=== PATIENT | female | born 1970 | race Caucasian/White ===

== ENCOUNTER 2021-05-22 07:36 | Outpatient (REF) | payer OTHER, SELFPAY ==
[2021-05-22 08:02] LABS: MANUAL DIFF FLAG NO
[2021-05-22 08:31] LABS: Basophils Absolute Auto 0.1 X10*3/uL (0.0-0.2); Basophils Percent Auto 0.7 % (0-2); Eosinophils Absolute Auto 0.4 X10*3/uL (0.0-0.4); Eosinophils Percent Auto 6.4 % (0-4); Hematocrit 36.6 % (37.0-47.0); Hemoglobin 12.6 g/dl (12.0-16.0); Imm Gran Abs Auto 0.01 X10*3/uL (0.00-0.03); Imm Gran Pct Auto 0.1 % (0.0-0.4); Lymphocytes Absolute Auto 3.3 X10*3/uL (1.2-4.9); Lymphocytes Percent Auto 47.5 % (20-40); Mean Corpuscular HGB Conc 34.4 g/dl (31.0-35.0); Mean Corpuscular Hemoglobin 30.9 pg (27.0-33.0); Mean Corpuscular Volume 89.7 fL (80.0-98.0); Mean Platelet Volume 9.4 fL (9.4-12.3); Monocytes Absolute Auto 0.4 X10*3/uL (0.1-1.2); Monocytes Percent Auto 5.5 % (2-11); Neutrophils Absolute Auto 2.8 x10*3/uL (2.0-8.3); Neutrophils Percent Auto 39.8 % (45-73); Platelet Count 302 X10*3/uL (160-400); Red Blood Count 4.08 X10*6/uL (4.20-5.50); Red Cell Distribution Width 12.6 % (11.0-16.0); White Blood Count 6.9 X10*3/uL (4.8-10.8)
[2021-05-22 08:48] LABS: Estimated Average Glucose 105 mg/dL; Hemoglobin A1c % 5.3 %
[2021-05-22 09:01] LABS: Alanine Aminotransferase 16 U/L (0-31); Albumin Level 4.2 g/dL (3.5-5.0); Alkaline Phosphatase 40 U/L (39-117); Anion Gap 12 (12-20); Aspartate Amino Transferase 16 U/L (5-31); Bilirubin Total 0.4 mg/dL (0.0-1.0); Blood Urea Nitrogen 13 mg/dL (9-16); Calcium 9.7 mg/dL (8.4-10.2); Carbon Dioxide 26 mmol/L (22-29); Chloride 107 mmol/L (96-108); Cholesterol 213 mg/dL; Estimated Glomerular Filt Rate > 60; Glucose Random 104 mg/dL (60-115); HDL Cholesterol 56 mg/dL; Iron 104 mcg/dL (30-160); LDL Cholesterol Calculated 131 mg/dl; Percent Iron Saturation 26 % (15-50); Potassium 4.4 mmol/L (3.3-5.1); Sodium 141 mmol/L (135-145); Total Iron Binding Capacity 395 mcg/dL (228-428); Total Protein 7.2 g/dL (6.5-8.0); Triglycerides 134 mg/dL; Unsaturated Iron Binding 291 ug/dL
[2021-05-22 09:24] LABS: Ferritin 71 ng/mL (10-250); TSH reflex Free T4 2.09 uIU/mL (0.32-4.0); Vitamin D 25-OH Total 28.6 ng/mL (>30)
[2021-05-22 10:15] LABS: Folate 11.2 ng/mL (> or = 4.0); Vitamin B12 640 pg/mL (200-900)
[2021-05-23 14:20] LABS: Calcium (PTHI) 9.5 mg/dL (8.6-10.2); PTHI 49 pg/mL (14-64)
[2021-05-25 14:47] LABS: Zinc 79 mcg/dL (60-130)
[2021-05-26 01:17] LABS: Vitamin A 46 mcg/dL (38-98)
[2021-05-27 10:41] LABS: Vitamin B1 6 nmol/L (8-30)
== END 2021-05-22 07:37 | disposition home or self-care (01) ==
LOC: HO.LAB 07:36
PROVIDERS: PCP Internal Medicine; Visit Provider Internal Medicine
DX: B07.9 Viral wart, unspecified (principal)
CPT/HCPCS: 36415; 80053; 80061; 82306; 82607; 82728; 82746; 83036; 83540; 83970; 84425; 84443; 84590; 84630; 85025

== ENCOUNTER 2022-01-03 09:40 | Outpatient (REF) | payer OTHER, SELFPAY ==
--- NOTE | ~2022-01-03 | XR_ITS ---
EXAMINATION: XR CERVICAL SPINE CLINICAL INFORMATION: Left-sided neck pain and tension COMPARISON: None TECHNIQUE: 3 views of the cervical spine were obtained. FINDINGS: No fracture or destructive process. Dystrophic calcification and spondylitic change observed, along the anterior margin of the C-spine. Prevertebral soft tissues are normal. Lateral masses of C1 and odontoid intact. XR/XR cervical spine 2V IMPRESSION: Degenerative change noted. No fracture.
== END 2022-01-03 09:41 | disposition home or self-care (01) ==
LOC: HO.XRAY 09:40
PROVIDERS: PCP Internal Medicine; Visit Provider Internal Medicine
DX: M54.2 Cervicalgia (principal); J45.41 Moderate persistent asthma with (acute) exacerbation
CPT/HCPCS: 72040

== ENCOUNTER 2022-02-21 11:41 | Outpatient (REF) | payer OTHER, SELFPAY ==
--- NOTE | ~2022-02-21 | XR_ITS ---
EXAMINATION: XR CHEST CLINICAL INFORMATION: Chest pain COMPARISON: Previous chest x-ray September 2019 TECHNIQUE: 2 views of the chest were obtained. FINDINGS: No significant abnormality is noted involving the heart, lungs, mediastinum, bony thorax or soft tissues. Surgical clips under the left hemidiaphragm. XR/XR chest 2V IMPRESSION: Unremarkable examination.
[2022-02-21 13:12] LABS: Eos%MD 2.8 %; Hematocrit 38.1 % (37.0-47.0); Hemoglobin 13.5 g/dl (12.0-16.0); IG%MD 0.1 %; Lymph%MD 35.3 %; Mean Corpuscular HGB Conc 35.4 g/dl (31.0-35.0); Mean Corpuscular Hemoglobin 31.5 pg (27.0-33.0); Mean Corpuscular Volume 88.8 fL (80.0-98.0); Mean Platelet Volume 9.9 fL (9.4-12.3); Mono%MD 5.2 %; Neut%MD 55.6 %; Platelet Count 317 X10*3/uL (160-400); Red Blood Count 4.29 X10*6/uL (4.20-5.50); White Blood Count 7.9 X10*3/uL (4.8-10.8)
[2022-02-21 13:53] LABS: Eosinophils Absolute Manual 0.3 X10*3/uL (0.0-0.4); Eosinophils Percent Manual 4 % (0-4); Lymphocytes Absolute Manual 2.8 X10*3/uL (1.2-4.9); Lymphocytes Percent Manual 35 % (20-40); Monocytes Absolute Manual 0.2 X10*3/uL (0.1-1.2); Monocytes Percent Manual 2 % (2-11); Neutrophils Percent Manual 59 % (45-73)
[2022-02-21 13:54] LABS: Band Neutrophils Percent 0 % (3-5); Neutrophils Absolute Manual 4.7 X10*3/uL (2.0-8.3)
[2022-02-21 13:55] LABS: Platelet Estimate NORMAL (NORMAL); Platelet Morphology Comment NORMAL; RBC Morphology NORMAL
== END 2022-02-21 11:42 | disposition home or self-care (01) ==
LOC: HO.LAB 11:41
PROVIDERS: PCP Internal Medicine; Visit Provider Internal Medicine
DX: J45.909 Unspecified asthma, uncomplicated (principal); R07.9 Chest pain, unspecified; R05.9 Cough, unspecified
CPT/HCPCS: 36415; 71046; 85007; 85027

== ENCOUNTER 2022-03-29 09:09 | Outpatient (REF) | payer OTHER, SELFPAY ==
[2022-03-30 13:03] LABS: BV Int Neg Control Negative (Negative); BV Int Pos Control Positive (Positive)
[2022-04-04 08:39] LABS: HPV 16 RNA NOT DETECTED (NOT DETECTED); HPV mRNA E6/E7 rflx Detected (Not Detected)
== END 2022-03-29 09:10 | disposition home or self-care (01) ==
LOC: HO.LNP 09:09
PROVIDERS: Visit Provider Advanced Practice Midwife
DX: Z01.419 Encounter for gynecological examination (general) (routine) without abnormal findings (principal); Z11.51 Encounter for screening for human papillomavirus (HPV); N89.8 Other specified noninflammatory disorders of vagina
CPT/HCPCS: 87480; 87510; 87624; 87625; 87660; 88142

== ENCOUNTER 2022-04-02 11:13 | Outpatient (REF) | payer OTHER, SELFPAY ==
--- NOTE | ~2022-04-02 | US_ITS ---
EXAMINATION: US THYROID CLINICAL INFORMATION: Nontoxic goiter COMPARISON: None TECHNIQUE: Linear transducer grayscale and color Doppler examination with attention to the region of the thyroid. FINDINGS: SIZE: Measurements of the thyroid lobes and nodules are given in sagittal, anteroposterior and transverse dimensions respectively. Right Thyroid Lobe: 4.0 x 1.1 x 1.6 cm, volume 3.7 mL. Parenchyma: The gland echotexture is homogeneous. Thyroid vascularity is normal. Left Thyroid Lobe: 4.9 x 1.0 x 1.3 cm, volume 3.3 mL. Parenchyma: The gland echotexture is homogeneous. Thyroid vascularity is normal. Isthmus: 0.3 cm in maximum AP dimension. Note nodules. NODES: No lymphadenopathy is seen in the tissue surrounding the thyroid gland. US/US thyroid IMPRESSION: Normal thyroid ultrasound.
== END 2022-04-02 11:14 | disposition home or self-care (01) ==
LOC: HO.US 11:13
PROVIDERS: Visit Provider Internal Medicine
DX: E04.9 Nontoxic goiter, unspecified (principal)
CPT/HCPCS: 76536

== ENCOUNTER 2022-04-17 09:54 | Outpatient (REF) | payer OTHER, SELFPAY | END 2022-04-17 09:55 | disposition home or self-care (01) | LOC: HO.RESP 09:54 | PROVIDERS: PCP Internal Medicine; Visit Provider Internal Medicine | DX: J45.909 Unspecified asthma, uncomplicated (principal) | CPT/HCPCS: 94060; 94727; 94729 ==

== ENCOUNTER → 2022-05-08 15:23 | Outpatient (BNVA) | payer OTHER, SELFPAY | PROVIDERS: PCP Internal Medicine; Visit Provider Internal Medicine | DX: Z13.89 Encounter for screening for other disorder (principal) ==

== ENCOUNTER 2022-05-24 08:04 | Outpatient (REF) | payer OTHER, SELFPAY | END 2022-05-24 08:05 | disposition home or self-care (01) | LOC: HO.LNP 08:04 | PROVIDERS: PCP Internal Medicine; Visit Provider Obstetrics & Gynecology | DX: R87.610 Atypical squamous cells of undetermined significance on cytologic smear of cervix (ASC-US) (principal); R87.810 Cervical high risk human papillomavirus (HPV) DNA test positive; N95.0 Postmenopausal bleeding | CPT/HCPCS: 57454; 88305 ==

== ENCOUNTER 2022-06-08 13:41 | Outpatient (REF) | payer OTHER, SELFPAY ==
--- NOTE | ~2022-06-08 | US_ITS ---
EXAMINATION: US PELVIS CLINICAL INFORMATION: Postmenopausal bleeding. 51-year-old. COMPARISON: 03/12/2019 TECHNIQUE: Ultrasound of the pelvis is performed using both transabdominal and transvaginal transducers along with Doppler. Transvaginal imaging is performed due to inadequate visualization transabdominally. FINDINGS: Uterus: The uterus is anteverted and measures 6.6 x 3.3 x 4.1 cm. The double wall endometrial thickness is 0.4 mm, but mildly thickened towards the fundal aspect with suggestion of possible cystic changes.. The uterus is smooth in contour and has normal myometrial echogenicity. There is a intramural 1.7 cm fibroid. A second smaller subserosal 1.2 cm fibroid is noted. Adnexa: Both ovaries are visualized. There is normal color flow to the adnexa. There is no ovarian torsion. There is no pelvic ascites or fluid collection. Right ovary measures 2.4 x 1.6 x 1.0 cm. Left ovary measures 2.3 x 1.3 x 1.6 cm. US/US pelvic and transvaginal IMPRESSION: 1. The double wall endometrial thickness is 0.4 mm, but mildly thickened towards the fundal aspect with suggestion of possible cystic changes. Recommend gynecologic consult. 2. Uterine fibroids.
== END 2022-06-08 13:42 | disposition home or self-care (01) ==
LOC: HO.US 13:41
PROVIDERS: Visit Provider Advanced Practice Midwife
DX: N95.0 Postmenopausal bleeding (principal)
CPT/HCPCS: 76830; 76856

== ENCOUNTER → 2022-06-21 10:21 | Outpatient (BNVA) | payer OTHER, SELFPAY | PROVIDERS: PCP Internal Medicine; Visit Provider Obstetrics & Gynecology | DX: Z13.89 Encounter for screening for other disorder (principal) ==

== ENCOUNTER 2022-07-06 10:44 | Day surgery (SDC) | payer OTHER, SELFPAY ==
[2022-07-03 10:12] VITALS: BMI 31.4
--- NOTE | 2022-07-05 11:12 | HO.ANESPROP2 ---
Documented by User: Dian Mendoza NP 07/05/22 11:14 HPI - Anesthesia Eval Consult details Narrative: 51yo F for D&C Hysteroscopy poss poltpectomy poss myomectomy PMFSH Active Problems Active Problems: All Active Problems (Updated 06/21/22 @ 10:44 by Mike Goodwin MD) Uterine myoma (Acute) Postmenopausal bleeding (Acute) ASCUS with positive high risk HPV cervical (Acute) Asthma (Acute) Hot flashes (Acute) Atypical lobular hyperplasia (ALH) of breast (Acute) Thyroid enlargement (Acute) Chest pain (Acute) Asthma (Acute) Obesity (BMI 30-39.9) (Acute) Insomnia (Acute) History of reduction mammoplasty (Acute) GERD (gastroesophageal reflux disease) (Acute) Hypertriglyceridemia (Acute) Fatty liver (Acute) Status post laparoscopic sleeve gastrectomy (Acute) Annual physical exam (Acute) Viral wart on finger (Acute) Contact dermatitis (Acute) Hidradenitis suppurativa (Acute) Intercostal pain (Acute) Eczema (Acute) Sprain of cervical neck (Acute) Annual physical exam (Acute) Past Medical History Medical History Anemia Asthma Asthma Atypical hyperplasia of right breast Cellulitis of ear Chest pain Colon cancer screening Cough Fatty liver GERD (gastroesophageal reflux disease) Hypertriglyceridemia Intercostal muscle pain Menorrhagia Neck pain Otitis externa Overweight (BMI 25.0-29.9) Restless leg syndrome Uterine fibroid Vitamin D deficiency Wound abscess Family History Family History Maternal Aunt Heart attack Lung cancer Uterine cancer Maternal Grandmother Lung cancer Surgical History Surgical History History of appendectomy History of endometrial ablation History of reduction mammoplasty Status post laparoscopic sleeve gastrectomy Social History Social History Housing: House Alcohol intake: current Alcohol intake frequency: holidays/special occasions only Patient Tobacco Use Status: Never used Tobacco e-Cigarette/Vaping Use: Never Used Second Hand Smoke Exposure: No Use of substances other than those prescribed or required for medical reasons: Yes Substance Use Type Other:: 3x week Are you DNR?: No Advance Directives: No Advance Directives Information Provided: Yes service: No Current occupational status: employed Cognitive needs: No Hearing needs: No Vision needs: Yes (glasses) Meds Allergies Allergy/AdvReac Type Severity Reaction Status Date / Time beclomethasone [From QVAR] Allergy Severe ANAPHYLAXIS,CHEST Verified 06/21/22 10:29 TIGHTNESS cyclobenzaprine AdvReac Intermediate restless Verified 06/21/22 10:29 leg Home Medications Medication Instructions Recorded Confirmed Last Taken Type tamoxifen 10 mg tablet 10 mg PO DAILY 03/29/22 07/03/22 Unknown History Exam Exam Date and Time: July 05, 2022 1112 Height,Weight and Vital Signs: Height 5 ft 4 in Weight 83 kg Narrative Narrative: PFT 04/2022 FLOWS:? FEV1 87% of predicted at 2.39 L. ? FVC 84% of predicted at 2.85 L. ? FEV1 to FVC ratio of 0.84. ? Positive bronchodilator response. ?? LUNG VOLUMES:? Total lung capacity 88% of predicted at 4.39 L. ? Residual volume 92% of predicted at 1.64 L. ? Slow vital capacity 85% of predicted at 2.75 L. ? Expiratory reserve volume 27% of predicted at 0.28 L. ? Diffusion capacity is normal. ?? IMPRESSION:? No obstructive or restrictive ventilatory defect.? Positive bronchodilator response.? Decreased expiratory reserve volume suggests extrathoracic restriction likely secondary to abdominal obesity. Assessment and Plan Assessment Anesthesia Assessment: Chart Reviewed Documented by User: Viviana Bella MD 07/06/22 12:04 [facility] Past Medical History Medical History Anemia Asthma Asthma Atypical hyperplasia of right breast Cellulitis of ear Chest pain Colon cancer screening Cough Fatty liver GERD (gastroesophageal reflux disease) Hypertriglyceridemia Intercostal muscle pain Menorrhagia Neck pain Otitis externa Overweight (BMI 25.0-29.9) Restless leg syndrome Uterine fibroid Vitamin D deficiency Wound abscess Family History Family History Maternal Aunt Heart attack Lung cancer Uterine cancer Maternal Grandmother Lung cancer Family history of problems with anesthesia: No Surgical History Surgical History History of appendectomy History of endometrial ablation History of reduction mammoplasty Status post laparoscopic sleeve gastrectomy History of Problems with Anesthesia: No Social History Social History Housing: House Alcohol intake: current Alcohol intake frequency: holidays/special occasions only Patient Tobacco Use Status: Never used Tobacco e-Cigarette/Vaping Use: Never Used Second Hand Smoke Exposure: No Use of substances other than those prescribed or required for medical reasons: Yes Substance Use Type Other:: 3x week Are you DNR?: No Advance Directives: No Advance Directives Information Provided: Yes service: No Current occupational status: employed Cognitive needs: No Hearing needs: No Vision needs: Yes (glasses) Meds Allergies Allergy/AdvReac Type Severity Reaction Status Date / Time beclomethasone [From QVAR] Allergy Severe ANAPHYLAXIS,CHEST Verified 06/21/22 10:29 TIGHTNESS cyclobenzaprine AdvReac Intermediate restless Verified 06/21/22 10:29 leg Home Medications Medication Instructions Recorded Confirmed Last Taken Type tamoxifen 10 mg tablet 10 mg PO DAILY 03/29/22 07/03/22 Unknown History Exam Airway Mallampati Class: I TM Dist: >3cm Neck ROM: Full Heart: rr Lungs: cta Assessment and Plan Final Anesthetic Review Family History of Problems with Anesthesia: No History of Problems with Anesthesia: No NPO: Yes ASA Class: II Final Preanesthetic Review: No Changes in Pt Med Stat, Meds/Allgs Chart Reviewed, Consent Obtained/Reviewed and Anes Risks/Benef Reviewed Patient Risk: Low Procedure Risk: Low Anesthetic Plan Anesthetic Plan: GA Disposition: Standard PACU
[2022-07-06 11:03] VITALS: BP 116/74; PULSE 76; RESP 18; TEMP 36.3; O2SAT 97; BMI 31.2
[2022-07-06 11:06] VITALS: BMI 31.2
[2022-07-06 11:42] LABS: UPreg QC Valid YES; Urine Pregnancy NEGATIVE (NEGATIVE)
--- NOTE | 2022-07-06 12:03 | MHC.SHP ---
Pre-Procedural Eval Section A Date of Service: 07/06/22 The patient is an INPATIENT: No Changes since office visit: No Cold of Flu in the past 2 weeks, No New Medical Problems, No Changes in Medication and No Patient answered all questions The History & Physical has been completed within 30 days and I have reviewed it.: Yes Section B Chief Complaint: Postmenopausal bleeding Allergies: Allergies Allergy/AdvReac Type Severity Reaction Status Date / Time beclomethasone [From QVAR] Allergy Severe ANAPHYLAXIS,CHEST Verified 06/21/22 10:29 TIGHTNESS cyclobenzaprine AdvReac Intermediate restless Verified 06/21/22 10:29 leg Plan Diagnosis/Plan: Unchanged I have reviewed the history and physical and performed a pertinent physical examination on my patient. No changes have occurred unless specified. Time Spent With Patient Time: Total time managing care of this patient today ____ minutes.
--- NOTE | 2022-07-06 12:45 | P.BOP_ITS ---
Brief Operative Note Date of Service: 07/06/22 Pre-op diagnosis: Postmenopausal bleeding Post-op diagnosis: same (Normal endometrial cavity with no evidence pathology) Procedure: Hysteroscopy D&C Surgeon: Mike Goodwin MD Anesthesia: GLMA Was an Machine Tool Technician Instructor used for this Procedure?: No Estimated blood loss (mL): 0 Pathology: other (Endometrial Scrapping. ) Condition: stable Disposition: PACU
--- NOTE | 2022-07-06 12:45 | P.OP_ITS ---
Operative Note Operative Note Date of Service: 07/06/22 Narrative: Preop Diagnosis: Post Menopausal bleeding Operation: Diagnostic Hysteroscopy, Dilataion & Curettage Post Op Diagnosis: Normal endometrial cavity QBL: Minimal Anesthesia: GLMA Surgeon: Mike Goodwin MD Senior Executive Compensation Analyst: None Complication: None Pathology: Endometrial Scrapings Procedure: The patient was put in the dorsal lithotomy position, scrubbed, and draped in the usual manner. A sterile speculum was inserted in the patient's vagina. The anterior lip of the cervix was grasped with a single tooth tenaculum. The cervix was dilated up to 5 mm, then the scope was inserted in the patient's uterus. Inspection revealed Normal endometrial cavity. The Myosure Reach device was used; the scope was removed from the endometrial cavity , sharp curettings was carried on with minimal to moderate amount of tissues retrieved. At the end of the procedure, all instruments were taken out of the patient uterine and vaginal cavity. The single tooth tenaculum was removed and homeostasis was assured using pressure,. The patient tolerated the procedure well and was transferred to the PACU in a stable condition.
[2022-07-06 12:50] VITALS: BP 126/78; PULSE 91; RESP 16; TEMP 36.8; O2SAT 94
[2022-07-06 12:55] VITALS: BP 128/86; PULSE 85; RESP 16; O2SAT 96
[2022-07-06 13:00] VITALS: BP 128/76; PULSE 80; RESP 16; O2SAT 97
[2022-07-06] MEDS: oxyCODONE HCl Immed Release 5 MG TABLET PO (13:00)
[2022-07-06 13:05] VITALS: BP 125/77; PULSE 68; RESP 16; O2SAT 98
[2022-07-06] MEDS: Acetaminophen 325 MG TABLET 650 MG PO (13:07)
[2022-07-06] MEDS: Ketorolac Tromethamine 30 MG/ML VIAL 15 MG IVPUSH (13:09)
[2022-07-06 13:20] VITALS: BP 128/76; PULSE 76; RESP 18; TEMP 36.4; O2SAT 98
== END 2022-07-06 13:45 | disposition home or self-care (01) ==
PROVIDERS: PCP Internal Medicine; Visit Provider Obstetrics & Gynecology
PROC: 0UDB8ZZ Extraction of Endometrium, Via Natural or Artificial Opening Endoscopic (ICD-10-PCS; CPT 58558; principal; 2022-07-06 12:30)
DX: N95.0 Postmenopausal bleeding (principal); N60.91 Unspecified benign mammary dysplasia of right breast; D25.9 Leiomyoma of uterus, unspecified; R87.610 Atypical squamous cells of undetermined significance on cytologic smear of cervix (ASC-US); R87.810 Cervical high risk human papillomavirus (HPV) DNA test positive; D64.9 Anemia, unspecified; J45.909 Unspecified asthma, uncomplicated; K21.9 Gastro-esophageal reflux disease without esophagitis; E78.1 Pure hyperglyceridemia; E55.9 Vitamin D deficiency, unspecified; E66.3 Overweight; Z68.31 Body mass index [BMI] 31.0-31.9, adult; Z79.810 Long term (current) use of selective estrogen receptor modulators (SERMs); Z79.899 Other long term (current) drug therapy; Z98.890 Other specified postprocedural states; Z88.8 Allergy status to other drugs, medicaments and biological substances; Z98.84 Bariatric surgery status
CPT/HCPCS: 58558; 81025; 88305; J1885; J2250; J2405; J3010

== ENCOUNTER → 2022-07-17 11:56 | Outpatient (BNVA) | payer OTHER, SELFPAY | PROVIDERS: PCP Internal Medicine; Visit Provider Obstetrics & Gynecology | DX: Z13.89 Encounter for screening for other disorder (principal) ==

== ENCOUNTER 2023-02-21 04:52 | Emergency (ER) | payer OTHER, SELFPAY ==
--- NOTE | ~2023-02-21 | US_ITS ---
EXAMINATION: US ABDOMEN LIMITED CLINICAL INFORMATION: Right upper quadrant pain. COMPARISON: None available. TECHNIQUE: Real-time imaging of the right upper quadrant abdominal to assess the gallbladder and common bile duct. FINDINGS: Gallbladder appears dilated. Multiple mobile gallstones are identified at the gallbladder fundus. Gallbladder wall thickness is within normal limits. Sonographic Boswell sign is reportedly positive. Common bile duct measures 0.6 cm in diameter. US/US abdomen limited IMPRESSION: Cholelithiasis. Though the gallbladder wall is not thickened, there is a reportedly positive sonographic Boswell sign and therefore early cholecystitis cannot be excluded. If clinically warranted, nuclear medicine hepatobiliary scan could be performed to assess for cystic duct obstruction.
[2023-02-21 05:02] VITALS: BP 134/89; PULSE 94; RESP 20; TEMP 36.8; O2SAT 96; BMI 31.8
[2023-02-21 05:13] LABS: MANUAL DIFF FLAG NO
[2023-02-21 05:14] LABS: Basophils Absolute Auto 0.1 X10*3/uL (0.0-0.2); Basophils Percent Auto 0.9 % (0-2); Eosinophils Absolute Auto 0.3 X10*3/uL (0.0-0.4); Eosinophils Percent Auto 3.1 % (0-4); Hematocrit 37.6 % (37.0-47.0); Hemoglobin 12.8 g/dl (12.0-16.0); Imm Gran Abs Auto 0.02 X10*3/uL (0.00-0.03); Imm Gran Pct Auto 0.2 % (0.0-0.4); Lymphocytes Absolute Auto 2.8 X10*3/uL (1.2-4.9); Lymphocytes Percent Auto 33.3 % (20-40); Mean Corpuscular Volume 85.3 fL (80.0-98.0); Mean Platelet Volume 9.1 fL (9.4-12.3); Monocytes Absolute Auto 0.5 X10*3/uL (0.1-1.2); Monocytes Percent Auto 5.3 % (2-11); Neutrophils Absolute Auto 4.9 x10*3/uL (2.0-8.3); Neutrophils Percent Auto 57.2 % (45-73); Platelet Count 326 X10*3/uL (160-400); Red Blood Count 4.41 X10*6/uL (4.20-5.50); Red Cell Distribution Width 12.1 % (11.0-16.0); White Blood Count 8.5 X10*3/uL (4.8-10.8)
[2023-02-21 05:26] LABS: Alanine Aminotransferase 26 U/L (0-31); Albumin Level 4.4 g/dL (3.5-5.0); Alkaline Phosphatase 50 U/L (39-117); Anion Gap 16 (12-20); Aspartate Amino Transferase 28 U/L (5-31); Bilirubin Direct 0.1 mg/dL (0.0-0.5); Bilirubin Total 0.3 mg/dL (0.0-1.0); Blood Urea Nitrogen 14 mg/dL (9-16); Calcium 9.5 mg/dL (8.4-10.2); Carbon Dioxide 20 mmol/L (22-29); Chloride 108 mmol/L (96-108); Creatinine Clr Calc Pharmacy 81.1; Estimated Glomerular Filt Rate > 60; Glucose Random 138 mg/dL (60-115); Lipase 28 U/L (8-78); Potassium 4.1 mmol/L (3.3-5.1); Sodium 140 mmol/L (135-145); Total Protein 7.7 g/dL (6.5-8.0)
[2023-02-21] MEDS: Ketorolac Tromethamine 30 MG/ML VIAL 15 MG IVPUSH (05:27)
[2023-02-21] MEDS: 0.9 % Sodium Chloride 1,000 ML 999 ML IV (05:27)
--- NOTE | 2023-02-21 05:32 | PC.NURSE ---
Pt presents to the ED for evaluation of severe RUQ abdominal pain since 10 pm last night. Patient is also c/o N/V/D. 20 G IV line inserted in R AC, labs drawn per MD order. Patient medicated per JUN. Call mehta placed within patient's reach. Plan of care ongoing.
[2023-02-21 06:04] VITALS: RESP 16
[2023-02-21] MEDS: HYDROmorphone HCl 0.5 MG/0.5 ML SYRINGE 0.25 MG IVPUSH (06:04)
--- NOTE | 2023-02-21 06:07 | ED_ITS ---
HPI - Abdominal Pain General Chief Complaint: Abdominal Pain Stated Complaint: Abdominal/Back pain Time Seen by Provider: 02/21/23 05:21 Source: patient Mode of arrival: ambulatory History of Present Illness HPI narrative: 52-year-old female who presents with onset of right upper quadrant pain last night at approximately 22:00 and was associated with nausea, vomiting and a small amount of diarrhea but denies any dysuria or history of renal colic and denies any fevers or chills. Patient is currently in pain. Related Data Home Medications Medication Instructions Recorded Confirmed tamoxifen 10 mg tablet 10 mg PO DAILY 03/29/22 07/19/22 Previous Rx's Medication Instructions Recorded triamcinolone acetonide 0.5 % 1 appl topical BID #15 grams 05/02/21 topical cream albuterol sulfate 90 mcg/actuation 2 puff inhalation Q6H PRN 11/28/21 aerosol inhaler (ProAir HFA) bronchospasm 90 days #8.5 grams [id number] 3.5 4 drp otic (ears) Q8H 10 days #10 06/19/22 mg-10,000 unit/mL-1 % ear mL drops,susp omeprazole 20 mg capsule,delayed 20 mg PO DAILY 90 days #90 caps 01/21/23 release citalopram 20 mg tablet 20 mg PO DAILY #90 tabs 02/13/23 zolpidem 5 mg tablet (Ambien) 5 mg PO BEDTIME PRN sleep #14 tabs 02/13/23 Allergies Allergy/AdvReac Type Severity Reaction Status Date / Time beclomethasone [From QVAR] Allergy Severe ANAPHYLAXIS,CHEST Verified 06/21/22 10:29 TIGHTNESS cyclobenzaprine AdvReac Intermediate restless Verified 06/21/22 10:29 leg Review of Systems Review of Systems Pertinent positives and negatives as stated in HPI PMFSH Past Medical History Source: nursing notes reviewed Medical History Asthma Chest pain Asthma Neck pain Intercostal muscle pain Cough Otitis externa Colon cancer screening Overweight (BMI 25.0-29.9) Wound abscess Cellulitis of ear Menorrhagia Anemia Uterine fibroid Fatty liver Hypertriglyceridemia Vitamin D deficiency GERD (gastroesophageal reflux disease) Restless leg syndrome Atypical hyperplasia of right breast Surgical History History of endometrial ablation Status post laparoscopic sleeve gastrectomy History of appendectomy History of reduction mammoplasty Family History Family History Maternal Aunt Heart attack Lung cancer Uterine cancer Maternal Grandmother Lung cancer Social History Social History Housing: House Alcohol intake: current Alcohol intake frequency: holidays/special occasions only Alcohol type: wine Patient Tobacco Use Status: Never used Tobacco Smoked in Last 30 Days: No e-Cigarette/Vaping Use: Never Used Second Hand Smoke Exposure: No Use of substances other than those prescribed or required for medical reasons: Yes Substance Use Type: Marijuana Substance Use Frequency: Daily Advance Directives: No Advance Directives Information Provided: Yes Patient : No service: No Current occupational status: employed Cognitive needs: No Hearing needs: No Vision needs: Yes (glasses) Physical Exam ED Vital Signs: Vital Signs - 24 hr 02/21/23 05:02 02/21/23 06:04 02/21/23 06:12 Temperature 98.2 F 98.2 F Pulse Rate 94 79 Respiratory Rate 20 16 14 Blood Pressure 134/89 140/84 H Pulse Oximetry 96 100 Oxygen Delivery Method Room Air Room Air BMI result Body Mass Index 31.8 VITAL SIGNS: Reviewed. GENERAL: Well developed, well nourished, in no acute distress. HEAD: Normocephalic/atraumatic EYES: PERRLA, EOMI EARS: Ext canals without abnormality NOSE: Nares patent bilateral OROPHARYNX: no oral lesions noted, posterior pharynx clear NECK: Supple, no adenopathy LUNGS: Normal breath sounds. No adventitious sounds or accessory muscle use. SpO2<96> CARDIOVASCULAR: Regular rate and rhythm without noted murmurs ABDOMEN: Soft, tenderness to palpation in the right upper quadrant with positive Boswell's, non-distended with bowel sounds. MUSCULOSKELETAL: No tenderness, deformities, or effusions noted on gross inspection. EXTREMITIES: No cyanosis, clubbing or edema. SKIN: Inspection of the skin reveals no rashes NEUROLOGIC: Alert and oriented x 4. Strength and sensation to light touch were grossly intact x 4. Medical Decision Making Medical Decision Making MDM Narrative: 52-year-old female who presents with onset of right upper quadrant pain with associated nausea and vomiting, DDX: Acute cholecystitis, less likely felt to be renal colic or pyelonephritis and lower clinical suspicion for viral etiology. I reviewed all investigations and hematologic indices are negative for leukocytosis or left shift, there is no anemia or thrombocytopenia. Chemistry indices are grossly within normal limits without REJI and no evidence of electrolyte or liver enzyme abnormalities, lipase is within normal limits. Urinalysis shows trace leukocyte esterase without nitrite positivity and doubt UTI. Ultrasound shows a dilated gallbladder with gallstones but there is no noted gallbladder wall thickening and Boswell's is positive on the ultrasound exam. Recommendation from Radiology is for HIDA scan. Signed out to DR Costello - KELLY Scan - Dr Carter aware Differential Diagnosis Differential Diagnoses: The differential diagnosis associated with the presentation includes Please see the discussion above Admission/Observation Consideration of admission/observation: Escalation of care including admission/observation considered Please see the discussion above Lab Data MDM Lab Attestation statement: I reviewed the patient's lab results. Please see the discussion above 02/21/23 05:09 02/21/23 05:09 Labs: Lab Results 02/21/23 02/21/23 Range/Units 05:09 06:41 WBC 8.5 (4.8-10.8) X10*3/uL RBC 4.41 (4.20-5.50) X10*6/uL Hgb 12.8 (12.0-16.0) g/dl Hct 37.6 (37.0-47.0) % MCV 85.3 (80.0-98.0) fL MCH 29.0 (27.0-33.0) pg MCHC 34.0 (31.0-35.0) g/dl RDW 12.1 (11.0-16.0) % Plt Count 326 (160-400) X10*3/uL MPV 9.1 L (9.4-12.3) fL Immature Gran % (Auto) 0.2 (0.0-0.4) % Neut % (Auto) 57.2 (45-73) % Lymph % (Auto) 33.3 (20-40) % Reagan % (Auto) 5.3 (2-11) % Eos % (Auto) 3.1 (0-4) % Baso % (Auto) 0.9 (0-2) % Lymph # (Auto) 2.8 (1.2-4.9) X10*3/uL Reagan # (Auto) 0.5 (0.1-1.2) X10*3/uL Eos # (Auto) 0.3 (0.0-0.4) X10*3/uL Baso # (Auto) 0.1 (0.0-0.2) X10*3/uL Abs Immat Gran (auto) 0.02 (0.00-0.03) X10*3/uL Absolute Neuts (auto) 4.9 (2.0-8.3) x10*3/uL Absolute Nucleated RBC 0.000 (0.0-0.012) X10*3/uL Nucleated RBC % (auto) 0.0 (0.0-0.2) /100WBC Sodium 140 (135-145) mmol/L Potassium 4.1 (3.3-5.1) mmol/L Chloride 108 (96-108) mmol/L Carbon Dioxide 20 L (22-29) mmol/L Anion Gap 16 (12-20) BUN 14 (9-16) mg/dL Creatinine 0.86 (0.5-1.4) mg/dL Estim Creat Clear Calc 81.1 Estimated GFR > 60 Random Glucose 138 H (60-115) mg/dL Calcium 9.5 (8.4-10.2) mg/dL Total Bilirubin 0.3 (0.0-1.0) mg/dL Direct Bilirubin 0.1 (0.0-0.5) mg/dL AST 28 (5-31) U/L ALT 26 (0-31) U/L Alkaline Phosphatase 50 (39-117) U/L Total Protein 7.7 (6.5-8.0) g/dL Albumin 4.4 (3.5-5.0) g/dL Lipase 28 (8-78) U/L Urine Color Yellow Urine Appearance Hazy Urine pH 5.5 (5.0-9.0) Ur Specific [place] >= 1.030 H (1.005-1.025) Urine Protein Negative (Neg-Trace) mg/dL Urine Glucose (UA) Negative (Negative) mg/dL Urine Ketones Negative (Negative) mg/dL Urine Blood Negative (Negative) Urine Nitrite Negative (Negative) Ur Leukocyte Esterase Trace H (Negative) Radiology Impression Discussion of test interpretation with radiology: I have reviewed the radiologist's reading. Radiologist Impression: Please see the discussion above Medications Administered Discontinued Medications Generic Name Dose Route Start Last Admin Trade Name Freq PRN Reason Stop Dose Admin Hydromorphone HCl 0.25 mg 02/21/23 05:59 02/21/23 06:04 Hydromorphone Hcl 0.5 Mg/0.5 Ml Syringe IVPUSH 02/21/23 06:00 0.25 mg ONCE ONE Administration Protocol Sodium Chloride 1,000 mls @ 999 mls/hr 02/21/23 05:30 02/21/23 05:27 Ns IV 02/21/23 06:30 999 mls/hr .Q1H1M JANINE Administration Ketorolac Tromethamine 15 mg 02/21/23 05:20 02/21/23 05:27 Ketorolac Tromethamine 30 Mg/Ml Vial IVPUSH 02/21/23 05:21 15 mg ONCE ONE Administration Discharge Plan Discharge Clinical Impression: Right upper quadrant abdominal pain Patient Disposition: Still a Patient Prescriptions: No Action albuterol sulfate [ProAir HFA] 90 mcg/actuation HFA aerosol inhaler 2 puff inhalation Q6H PRN (Reason: bronchospasm) 90 Days Qty: 8.5 0RF zexvtibj-tefbqvetl-PQ 3.5-10,000-1 mg/mL-unit/mL-% drops,suspension 4 drp otic (ears) Q8H 10 Days Qty: 10 0RF omeprazole 20 mg capsule,delayed release(DR/EC) 20 mg PO DAILY 90 Days Qty: 90 1RF citalopram 20 mg tablet 20 mg PO DAILY Qty: 90 3RF zolpidem [Ambien] 5 mg tablet 5 mg PO BEDTIME PRN (Reason: sleep) Qty: 14 0RF triamcinolone acetonide 0.5 % cream 1 appl topical BID Qty: 15 0RF tamoxifen 10 mg tablet 10 mg PO DAILY
[2023-02-21 06:12] VITALS: BP 140/84; PULSE 79; RESP 14; TEMP 36.8; O2SAT 100
[2023-02-21 07:01] LABS: Appearance Urine Hazy; Color Urine Yellow; Glucose Urine UA Negative (Negative); Leukocyte Esterase Urine Trace (Negative); Nitrite Urine Negative (Negative); PH 5.5 (5.0-9.0); Specific Gravity - Urine >= 1.030 (1.005-1.025); UMIC TRIGGER UACC YES; Urine Blood Negative (Negative); Urine Ketones Negative (Negative); Urine Protein Negative (Neg-Trace)
[2023-02-21 07:22] LABS: Bacteria Urine 2+ (None Seen); Granular Casts Urine Present; RBC Urine 0-2 /HPF (0-2); UACC Culture Trigger YES
[2023-02-21 07:35] VITALS: BP 129/75; PULSE 78; RESP 16; O2SAT 97
--- NOTE | 2023-02-21 08:23 | P.CONGS_ITS ---
History of Present Illness Consult details Consult date: 02/21/23 Requesting physician: Emily Barton Narrative: 52-year-old female patient presenting with complaints of abdominal pain in the right upper quadrant beginning at 22:00 yesterday. She denies a previous history of similar pain. The pain was sharp and constant and remained in the right upper quadrant without relief. She also reports nausea, vomiting, and diarrhea. When the pain did not improve she presented to the emergency department for further evaluation. She has a previous history of bariatric surgery approximately [address] Fair. She denies any problems following the surgery. Workup in the emergency department revealed normal laboratory studies. An ultrasound the abdomen however revealed gallstones within the gallbladder, floating with a moderately dilated gallbladder. The gallbladder wall was of normal thickness but there was tenderness with palpation of the gallbladder suggestive of a sonographic Boswell sign. The patient reports that her father yesterday and her family needs to make arrangements for his . She would like to avoid admission/surgery at this time if at all possible. Review of Systems 2 Review of Systems: Yes all other systems are reviewed and are negative Constitutional: Constitutional: Denies chills, Denies fever(s), Denies headache(s), Denies poor appetite and Denies weakness ENT: Denies headache(s) Cardiovascular: Cardiovascular: Denies chest pain, Denies irregular heart rhythm, Denies palpitations and Denies dyspnea Respiratory: Respiratory: Denies cough, Denies excessive phlegm production and Denies dyspnea Gastrointestinal: Gastrointestinal: Denies abdominal pain, Denies bloating, Denies change in bowel habits, Denies constipation, Denies heartburn, Denies diarrhea, Denies nausea and Denies vomiting Genitourinary: Genitourinary: Denies urinary frequency Musculoskeletal: Musculoskeletal: Denies back pain, Denies muscle weakness and Denies numbness Integumentary/Breasts: Skin/Breast: Denies changing lesions and Denies unusual bruising Neurologic: Denies headache(s), Denies numbness, Denies paresthesias and Denies weakness Psychiatric: Psychiatric: Denies anxiety and Denies depression Endocrine: Endocrine: Denies palpitations Hematologic/Lymphatic: Hematologic/Lymphatic: Denies lymphadenopathy PMFSH Past Medical History Medical History Asthma Chest pain Asthma Neck pain Intercostal muscle pain Cough Otitis externa Colon cancer screening Overweight (BMI 25.0-29.9) Wound abscess Cellulitis of ear Menorrhagia Anemia Uterine fibroid Fatty liver Hypertriglyceridemia Vitamin D deficiency GERD (gastroesophageal reflux disease) Restless leg syndrome Atypical hyperplasia of right breast Family History Family History Maternal Aunt Heart attack Lung cancer Uterine cancer Maternal Grandmother Lung cancer Surgical History Surgical History History of endometrial ablation Status post laparoscopic sleeve gastrectomy History of appendectomy History of reduction mammoplasty Social History Social History Housing: House Alcohol intake: current Alcohol intake frequency: holidays/special occasions only Alcohol type: wine Patient Tobacco Use Status: Never used Tobacco Smoked in Last 30 Days: No e-Cigarette/Vaping Use: Never Used Second Hand Smoke Exposure: No Use of substances other than those prescribed or required for medical reasons: Yes Substance Use Type: Marijuana Substance Use Frequency: Daily Advance Directives: No Advance Directives Information Provided: Yes Patient : No service: No Current occupational status: employed Cognitive needs: No Hearing needs: No Vision needs: Yes (glasses) Meds Allergies Allergy/AdvReac Type Severity Reaction Status Date / Time beclomethasone [From QVAR] Allergy Severe ANAPHYLAXIS,CHEST Verified 06/21/22 10:29 TIGHTNESS cyclobenzaprine AdvReac Intermediate restless Verified 06/21/22 10:29 leg Home Medications Medication Instructions Recorded Confirmed Last Taken Type tamoxifen 10 mg tablet 10 mg PO DAILY 03/29/22 07/19/22 Unknown History Physical Exam 2 Vital Signs: Vital Signs: Last Vital Signs Temp 98.2 F 02/21/23 06:12 Pulse 78 02/21/23 07:35 Resp 16 02/21/23 07:35 BP 129/75 02/21/23 07:35 Pulse Ox 97 02/21/23 07:35 O2 Del Method Room Air 02/21/23 07:35 BMI result Body Mass Index 31.8 Const: General: cooperative and no acute distress Nutritional Appearance: w ell nourished Orientation/consciousness: patient oriented x3 Limitations: no limitations HEENT: Head: Yes normocephalic and Yes atraumatic Ears: hearing grossly normal bilaterally Resp: Effort & Inspection: normal respiratory effort, no audible wheezes, no cough and no respiratory distress Cardio: Jugular venous distension: no JVD GI: Inspection: Yes normal to inspection Palpation (GI): Soft to palpation, Tenderness to palpation present (GI) in the RUQ; Boswell's sign negative and with no rebound tenderness and No hepatosplenomegaly present Auscultation: normal bowel sounds Rectal Exam - Female: deferred Skin: Other: Warm, dry, no rash Neuro: General: patient oriented x3 Extrem: General: Yes no clubbing, cyanosis or edema Results Labs 02/21/23 05:09 02/21/23 05:09 Labs: Abnormal lab results 02/21/23 02/21/23 Range/Units 05:09 06:41 MPV 9.1 L (9.4-12.3) fL Carbon Dioxide 20 L (22-29) mmol/L Random Glucose 138 H (60-115) mg/dL Ur Specific [place] >= 1.030 H (1.005-1.025) Ur Leukocyte Esterase Trace H (Negative) Urine WBC 6-10 H (0-5) /HPF Short CBC 02/21/23 Range/Units 05:09 WBC 8.5 (4.8-10.8) X10*3/uL Hgb 12.8 (12.0-16.0) g/dl Hct 37.6 (37.0-47.0) % Plt Count 326 (160-400) X10*3/uL BMP 02/21/23 05:09 Sodium 140 Potassium 4.1 Chloride 108 Carbon Dioxide 20 L BUN 14 Creatinine 0.86 Calcium 9.5 Liver Function 02/21/23 Range/Units 05:09 Total Bilirubin 0.3 (0.0-1.0) mg/dL Direct Bilirubin 0.1 (0.0-0.5) mg/dL AST 28 (5-31) U/L ALT 26 (0-31) U/L Alkaline Phosphatase 50 (39-117) U/L Albumin 4.4 (3.5-5.0) g/dL Urine 02/21/23 Range/Units 06:41 Urine Color Yellow Urine Appearance Hazy Urine pH 5.5 (5.0-9.0) Ur Specific [place] >= 1.030 H (1.005-1.025) Urine Protein Negative (Neg-Trace) mg/dL Urine Glucose (UA) Negative (Negative) mg/dL All other labs normal. Assessment and Plan (1) Right upper quadrant abdominal pain: Status: Acute Plan 52-year-old female patient with possible acute cholecystitis or biliary colic related to cholelithiasis. We discussed possible laparoscopic or open cholecystectomy as an option. Unfortunately the patient's father yesterday and she has family obligations to make arrangements for his . Recommend discharge with pain medication. She should avoid fatty/greasy foods and should follow up my office early next week to make arrangements for surgery. She expressed understanding and agrees with the plan. She also understands that if the pain does not improve or for symptoms worsen she would need to return to the emergency department. Time Spent With Patient Time: Total time managing care of this patient today ____ minutes. Procedures Date of Service Date of Service: 02/21/23
== END 2023-02-21 08:59 | disposition home or self-care (01) ==
PROVIDERS: Emergency Provider Student in an Organized Health Care Education/Training Program; PCP Internal Medicine
DX: R10.11 Right upper quadrant pain (principal); M54.50 Low back pain, unspecified; R11.2 Nausea with vomiting, unspecified; Z79.899 Other long term (current) drug therapy
CPT/HCPCS: 36415; 76705; 80048; 80076; 81001; 83690; 85025; 87086; 96361; 96374; 96375; 99285; J1170; J1885

== ENCOUNTER → 2023-02-21 05:20 | Outpatient (BNV) | payer OTHER, SELFPAY | PROVIDERS: Emergency Provider Student in an Organized Health Care Education/Training Program; PCP Internal Medicine; Visit Provider Surgery | DX: R10.11 Right upper quadrant pain (principal) | CPT/HCPCS: 99283 ==

== ENCOUNTER 2023-03-01 09:47 | Outpatient (AMB) | payer OTHER, SELFPAY ==
--- NOTE | 2023-03-01 09:51 | MHC.OFFVIS ---
Intake Vital Signs 03/01/23 09:58 Height 5 ft 4 in Weight 192 lb 8 oz BMI 33.0 BP 175/93 H Blood Pressure Location Lt brachial Position Sitting Pulse 83 Intake Visit Reasons: biliary colic Intake Note: Patient is seen in office for ER follow up visit, following bilary colic. Patient c/o: admits nausea, vomit, diarrhea, RUQ pain radiates to the back, onset 2 wks, worse after greasy meals Contribution Solicitor Required: No Accompanied by: Self / Same As Patient Allergies beclomethasone [From QVAR] Allergy (Severe, Verified 06/21/22 10:29) ANAPHYLAXIS,CHEST TIGHTNESS cyclobenzaprine Adverse Reaction (Intermediate, Verified 06/21/22 10:29) restless leg Medication List - Last Reconciled 03/01/23 by Jesús Carter MD albuterol sulfate 90 mcg/actuation (ProAir HFA) 2 puffs inhalation Q6H PRN 90 days citalopram 20 mg PO DAILY cmaxvvbo-lljdzbijd-HW 3.5-10,000-1 mg/mL-unit/mL-% 4 drps otic (ears) Q8H 10 days omeprazole 20 mg PO DAILY 90 days ondansetron 4 mg PO Q8H 4 days pantoprazole (Protonix) 40 mg PO DAILY tamoxifen 10 mg PO DAILY triamcinolone acetonide 0.5% 1 appl topical BID zolpidem (Ambien) 5 mg PO BEDTIME PRN HPI HPI Comments History of Present Illness Details 52-year-old female patient returning for a follow-up or examination after recent emergency department visit on 02/21/2023. At that time she developed severe right upper quadrant abdominal pain which was sharp and constant and associated with nausea, vomiting, and diarrhea. When the pain did not improve she presented to the emergency department for further evaluation. She reports history of bariatric surgery performed by Dr. Fair approximately 5 years prior. Laboratory studies were normal however ultrasound of the abdomen revealed gallstones within the gallbladder which were mobile. The gallbladder was noted to be moderately dilated. There was tenderness with palpation of the gallbladder by the ultrasound probe suggestive of a sonographic Boswell sign. As the patient's father had on the day prior to her Emergency Room visit, she elected to be discharge and returns today to discuss possible cholecystectomy. [facility] Medical History Asthma Chest pain Asthma Neck pain Intercostal muscle pain Cough Otitis externa Colon cancer screening Overweight (BMI 25.0-29.9) Wound abscess Cellulitis of ear Menorrhagia Anemia Uterine fibroid Fatty liver Hypertriglyceridemia Vitamin D deficiency GERD (gastroesophageal reflux disease) Restless leg syndrome Atypical hyperplasia of right breast Surgical History History of endometrial ablation Status post laparoscopic sleeve gastrectomy History of appendectomy History of reduction mammoplasty Family History Maternal Aunt Heart attack Lung cancer Uterine cancer Maternal Grandmother Lung cancer Social History Housing: House Alcohol intake: current Alcohol intake frequency: holidays/special occasions only Alcohol type: wine Patient Tobacco Use Status: Never used Tobacco e-Cigarette/Vaping Use: Never Used Second Hand Smoke Exposure: No Substance Use Type: Marijuana service: No Current occupational status: employed Cognitive needs: No Hearing needs: No Vision needs: Yes (glasses) Review of Systems Const All systems reviewed & are unremarkable except as noted in HPI and below Denies chills, Denies fever(s), Denies headache(s), Denies poor appetite and Denies weakness ENT Denies headache(s) Card Denies chest pain, Denies irregular heart rhythm, Denies palpitations and Denies dyspnea Resp Denies cough, Denies excessive phlegm production and Denies dyspnea GI Reports abdominal pain, Denies bloating, Denies change in bowel habits, Denies constipation, Denies heartburn, Reports diarrhea, Reports nausea and Reports vomiting Denies urinary frequency Musc Denies back pain, Denies muscle weakness and Denies numbness Skin/Breast Denies changing lesions and Denies unusual bruising Neuro Denies headache(s), Denies numbness, Denies paresthesias and Denies weakness Psych Denies anxiety and Denies depression Endo Denies palpitations Aldo/Lymph Denies lymphadenopathy Physical Exam Const General: cooperative and no acute distress Nutritional Appearance: well nourished Orientation/consciousness: patient oriented x3 Limitations: no limitations HEENT Head: Yes normocephalic and Yes atraumatic Ears: hearing grossly normal bilaterally Resp Effort & Inspection: normal respiratory effort, no audible wheezes, no cough and no respiratory distress Cardio Jugular venous distension: no JVD GI Inspection: Yes normal to inspection Palpation (GI): Soft to palpation and Tenderness to palpation present (GI) in the epigastrum and in the RUQ; Boswell's sign negative Percussion: Yes normal to percussion Auscultation: normal bowel sounds Rectal Exam - Female: deferred Skin Other: Warm, dry, no rash Neuro General: patient oriented x3 Extrem General: Yes no clubbing, cyanosis or edema Assessment & Plan Assessment & Plan (1) Cholecystitis, acute with cholelithiasis: Code(s): K80.00 - Calculus of gallbladder with acute cholecystitis without obstruction Qualifiers: Biliary obstruction: without biliary obstruction Qualified Code(s): K80.00 - Calculus of gallbladder with acute cholecystitis without obstruction Plan 52-year-old female patient presenting with complaints of abdominal pain in the right upper quadrant with associated nausea, vomiting, and diarrhea found to have acute cholecystitis due to cholelithiasis. I recommended a laparoscopic or possible open cholecystectomy and after discussion of the procedure, risks, and alternatives, she consents to the surgery. She will be scheduled at her earliest convenience as a short-stay surgery. Coding Level of Care Code Est Pt Level 4 (58747) Diagnoses Calculus of gallbladder with acute cholecystitis without obstruction K80.00 Biliary obstruction: without biliary obstruction
[2023-03-01 09:58] VITALS: BP 175/93; PULSE 83; BMI 33.0
== END 2023-03-01 10:04 | disposition home or self-care (01) ==
PROVIDERS: PCP Internal Medicine; Visit Provider Surgery
DX: K80.00 Calculus of gallbladder with acute cholecystitis without obstruction (principal)
CPT/HCPCS: 99214

== ENCOUNTER → 2023-03-01 09:47 | Outpatient (BNVA) | payer OTHER, SELFPAY | PROVIDERS: PCP Internal Medicine; Visit Provider Surgery ==

== ENCOUNTER 2023-03-11 06:00 | Day surgery (SDC) | payer OTHER, SELFPAY ==
[2023-03-07 13:44] VITALS: BMI 33.0
[2023-03-11] VITALS (8 sets, daily range): BP systolic 111–136; BP diastolic 65–79; PULSE 67–99; RESP 16–18; TEMP 36.2–36.6; O2SAT 94–97
--- NOTE | 2023-03-11 07:15 | P.CONAN_ITS ---
[facility] Active Problems Active Problems: All Active Problems (Updated 03/07/23 @ 13:38 by Anita Pedroza RN) Cholecystitis, acute with cholelithiasis (Acute) Uterine myoma (Acute) Postmenopausal bleeding (Acute) ASCUS with positive high risk HPV cervical (Acute) Hot flashes (Acute) Atypical lobular hyperplasia (ALH) of breast (Acute) Thyroid enlargement (Acute) Asthma (Acute) Obesity (BMI 30-39.9) (Acute) Insomnia (Acute) Annual physical exam (Acute) Sprain of cervical neck (Acute) Eczema (Acute) Intercostal pain (Acute) Hidradenitis suppurativa (Acute) Contact dermatitis (Acute) Viral wart on finger (Acute) Annual physical exam (Acute) Colon cancer screening (Acute) Asthma (Acute) Chest pain (Acute) History of reduction mammoplasty (Acute) GERD (gastroesophageal reflux disease) (Acute) Hypertriglyceridemia (Acute) Fatty liver (Acute) Status post laparoscopic sleeve gastrectomy (Acute) Past Medical History Medical History Asthma Chest pain Neck pain Intercostal muscle pain Cough Otitis externa Colon cancer screening Overweight (BMI 25.0-29.9) Wound abscess Cellulitis of ear Menorrhagia Anemia Uterine fibroid Fatty liver Hypertriglyceridemia Vitamin D deficiency GERD (gastroesophageal reflux disease) Restless leg syndrome Atypical hyperplasia of right breast Family History Family History Maternal Aunt Heart attack Lung cancer Uterine cancer Maternal Grandmother Lung cancer Family history of problems with anesthesia: No Surgical History Surgical History Hx of dilation and curettage History of endometrial ablation Status post laparoscopic sleeve gastrectomy History of appendectomy History of reduction mammoplasty History of Problems with Anesthesia: No Social History Social History Housing: House Alcohol intake: current Alcohol intake frequency: does not drink Alcohol type: wine Patient Tobacco Use Status: Never used Tobacco e-Cigarette/Vaping Use: Never Used Second Hand Smoke Exposure: No Substance Use Type: Marijuana Substance Use Frequency: Daily Have you been hit, kicked, punched, or otherwise hurt by someone within the past year? If so, by whom?: No Are you DNR?: No Advance Directives: No Advance Directives Information Provided: Yes Recently lost weight without trying: No Eating poorly because of decreased appetite: No Nutrition Risks: No Nutritional Risk Patient : No service: No Current occupational status: employed Cognitive needs: No Hearing needs: No Vision needs: Yes (glasses) Meds Allergies Allergy/AdvReac Type Severity Reaction Status Date / Time beclomethasone [From QVAR] Allergy Severe ANAPHYLAXIS,CHEST Verified 06/21/22 10:29 TIGHTNESS cyclobenzaprine AdvReac Intermediate restless Verified 06/21/22 10:29 leg Active Medications: Current Medications Lactated Ringer's (Lr) 1,000 mls @ 100 mls/hr IVCONT .Q10H REPLACED BY [facility] Home Medications Medication Instructions Recorded Confirmed Last Taken Type tamoxifen 10 mg tablet 10 mg PO DAILY 03/29/22 03/07/23 Unknown History Exam Exam Date and Time: March 11, 2023 0715 Height,Weight and Vital Signs: Height 5 ft 4 in Weight 87.09 kg Last Vital Signs Temp 97.2 F 03/11/23 06:42 Pulse 96 03/11/23 06:42 Resp 18 03/11/23 06:42 BP 119/75 03/11/23 06:42 Pulse Ox 97 03/11/23 06:42 O2 Del Method Room Air 03/11/23 06:42 Airway Mallampati Class: I TM Dist: >3cm Neck ROM: Full Assessment and Plan Assessment Anesthesia Assessment: Anesthesia Plan Discussed and Chart Reviewed Final Anesthetic Review Family History of Problems with Anesthesia: No History of Problems with Anesthesia: No NPO: Yes ASA Class: II Final Preanesthetic Review: No Changes in Pt Med Stat, Meds/Allgs Chart Reviewed, Consent Obtained/Reviewed and Anes Risks/Benef Reviewed Patient Risk: Low Procedure Risk: Intermediate Anesthetic Plan Anesthetic Plan: GA Disposition: Standard PACU
--- NOTE | 2023-03-11 07:36 | MHC.SHP ---
Pre-Procedural Eval Section A Date of Service: 03/11/23 The patient is an INPATIENT: No Changes since office visit: Yes Patient answered all questions; No Cold of Flu in the past 2 weeks, No New Medical Problems and No Changes in Medication The History & Physical has been completed within 30 days and I have reviewed it.: Yes Section B Chief Complaint: Calculus of gallbladder with acute cholecystitis Allergies: Allergies Allergy/AdvReac Type Severity Reaction Status Date / Time beclomethasone [From QVAR] Allergy Severe ANAPHYLAXIS,CHEST Verified 06/21/22 10:29 TIGHTNESS cyclobenzaprine AdvReac Intermediate restless Verified 06/21/22 10:29 leg Plan Diagnosis/Plan: Unchanged I have reviewed the history and physical and performed a pertinent physical examination on my patient. No changes have occurred unless specified. Time Spent With Patient Time: Total time managing care of this patient today ____ minutes.
--- NOTE | 2023-03-11 08:52 | W.PM.OPN ---
Operative Note Operative Note Date of Service: 03/11/23 Narrative: Preoperative diagnosis: Cholecystitis, cholelithiasis Postoperative diagnosis: Same Procedure: Laparoscopic cholecystectomy Surgeon: Jesús Carter MD Dispatcher Tow Truck: LIZETTE Barton Anesthesia: General endotracheal Indications for procedure: 52-year-old female patient presenting with complaints of abdominal pain in the right upper quadrant radiating to the back associated with nausea. Patient was found to have several large gallstones within the gallbladder. She presents today for laparoscopic or possible open cholecystectomy. Operative findings: Normal appearing gallbladder with several gallstones noted at the neck of the gallbladder. Specimen: gallbladder Estimated blood loss: 2 mL Complications: Non Procedure details: Patient was brought to the OR and placed in a supine position. After administering general anesthesia the patient's abdomen was prepped with ChloraPrep and draped in a sterile fashion. Local anesthesia consisting of 0.5% Sensorcaine without epinephrine was infiltrated in a periumbilical region. A 5 mm incision was made above the umbilicus in a transverse fashion. The Veress needle was then inserted while elevating abdominal cavity with towel clips. After positive drop test the abdomen was insufflated to a pressure of 15 mm of mercury. The Veress needle was then removed and a 5 mm trocar inserted. The camera was inserted in the abdomen explored. A 12 mm trocar was then placed in the epigastrium. Two 5 mm trocars placed in the right upper quadrant by the assistant branch manager. The patient was placed in reverse Trendelenburg positioning and rotated to the left. The gallbladder was grasped with the fundus and retracted cephalad by the assistant branch manager. The infundibulum was then grasped and retracted away from the liver bed, also by the assistant branch manager. The Dolphin dissected was then used by the surgeon to dissect the peritoneum off the infundibulum to reveal the junction with the cystic duct. Cystic artery was noted slightly medial and posterior to the cystic duct. After obtaining a critical view the cystic duct was doubly clipped and divided. The cystic artery was then doubly clipped and divided. The gallbladder was then dissected off the liver bed using electrocautery with an L hook. Hemostasis was assured all times using the electrocautery. When the gallbladder is completely dissected off the liver bed was placed in an Endo-Catch bag and brought out through the epigastric incision. The gallbladder was sent to pathology for further examination. The abdomen was then re-examined. The liver bed was irrigated and suctioned dry. No bleeding or bile leak could be identified. CO2 was then evacuated and all trocars removed. Fascia was closed at the epigastric incision using a [id number] 0 Polysorb suture. Skin was closed in all incisions using a subcuticular 4 0 Polysorb suture by both the surgeon and assistant branch manager. Sterile dressings consisting of Steri-Strips, 2 x 2 gauze, and Tegaderm were then applied. The patient tolerated the procedure well. Sponge instrument and needle counts reported as correct. The patient was transferred to PACU in stable condition.
[2023-03-11] MEDS: Acetaminophen 325 MG TABLET 650 MG PO (09:38)
[2023-03-11] MEDS: oxyCODONE HCl Immed Release 5 MG TABLET PO (09:39)
[2023-03-11] MEDS: Ondansetron ODT 4 MG TAB.RAPDIS TRANSLINGU (10:35)
== END 2023-03-11 10:53 | disposition home or self-care (01) ==
PROVIDERS: PCP Internal Medicine; Visit Provider Surgery
PROC: 0FT44ZZ Resection of Gallbladder, Percutaneous Endoscopic Approach (ICD-10-PCS; CPT 47562; principal; 2023-03-11 07:30)
DX: K80.10 Calculus of gallbladder with chronic cholecystitis without obstruction (principal); K21.9 Gastro-esophageal reflux disease without esophagitis; K76.0 Fatty (change of) liver, not elsewhere classified; J45.909 Unspecified asthma, uncomplicated; D25.9 Leiomyoma of uterus, unspecified; D64.9 Anemia, unspecified; E55.9 Vitamin D deficiency, unspecified; E66.3 Overweight; Z68.33 Body mass index [BMI] 33.0-33.9, adult; Z98.84 Bariatric surgery status; N60.91 Unspecified benign mammary dysplasia of right breast; Z79.810 Long term (current) use of selective estrogen receptor modulators (SERMs); Z79.899 Other long term (current) drug therapy; Z88.8 Allergy status to other drugs, medicaments and biological substances
CPT/HCPCS: 47562; 88304; J0665; J1100; J1170; J2250; J2405; J2704; J3010

== ENCOUNTER → 2023-03-11 06:00 | Outpatient (BNV) | payer OTHER, SELFPAY | PROVIDERS: PCP Internal Medicine; Visit Provider Surgery | DX: K80.00 Calculus of gallbladder with acute cholecystitis without obstruction (principal) | CPT/HCPCS: 47562 ==

== ENCOUNTER 2023-03-19 09:25 | Outpatient (AMB) | payer OTHER, SELFPAY ==
--- NOTE | 2023-03-19 09:28 | MHC.OFFVIS ---
Intake Vital Signs 03/19/23 09:35 Height 5 ft 4 in Weight 193 lb BMI 33.1 BP 135/86 Blood Pressure Location Lt brachial Position Sitting Pulse 75 Intake Visit Reasons: S/P lap greg Intake Note: Patient is seen in office for post op assessment post laparoscopic cholecystectomy. Patient c/o: denies any concerns after surgery, healing well. surgery: 03/11/23 Community Relations Director Required: No Accompanied by: Self / Same As Patient Allergies beclomethasone [From QVAR] Allergy (Severe, Verified 03/19/23 09:36) ANAPHYLAXIS,CHEST TIGHTNESS cyclobenzaprine Adverse Reaction (Intermediate, Verified 03/19/23 09:36) restless leg HPI HPI Comments History of Present Illness Details 52-year-old female patient returning 1 week following a laparoscopic cholecystectomy performed on 03/11/2023. Operative findings were suggestive of a normal appearing gallbladder with a stone wedged at the neck of the gallbladder. She returns today for postop visit. [facility] Medical History Asthma Chest pain Neck pain Intercostal muscle pain Cough Otitis externa Colon cancer screening Overweight (BMI 25.0-29.9) Wound abscess Cellulitis of ear Menorrhagia Anemia Uterine fibroid Fatty liver Hypertriglyceridemia Vitamin D deficiency GERD (gastroesophageal reflux disease) Restless leg syndrome Atypical hyperplasia of right breast Surgical History Hx of dilation and curettage History of endometrial ablation Status post laparoscopic sleeve gastrectomy History of appendectomy History of reduction mammoplasty Family History Maternal Aunt Heart attack Lung cancer Uterine cancer Maternal Grandmother Lung cancer Housing: House Alcohol intake: current Alcohol intake frequency: does not drink Alcohol type: wine Patient Tobacco Use Status: Never used Tobacco e-Cigarette/Vaping Use: Never Used Second Hand Smoke Exposure: No Substance Use Type: Marijuana service: No Current occupational status: employed Cognitive needs: No Hearing needs: No Vision needs: Yes (glasses) Physical Exam Vital Signs: Last Vital Signs Pulse 75 03/19/23 09:35 BP 135/86 03/19/23 09:35 BMI result Body Mass Index 33.1 Const General: no acute distress Eyes Sclerae: sclerae normal GI Other: Trocar incisions are clean, dry, and intact without redness or discharge. Assessment & Plan Assessment & Plan (1) Cholecystitis, acute with cholelithiasis: Comment: Cholecystectomy 03/11/2023 Code(s): K80.00 - Calculus of gallbladder with acute cholecystitis without obstruction Qualifiers: Biliary obstruction: without biliary obstruction Qualified Code(s): K80.00 - Calculus of gallbladder with acute cholecystitis without obstruction Plan 52-year-old female patient returning 1 week following laparoscopic cholecystectomy. She tolerated the procedure well and her wounds are healing nicely. She should continue to avoid lifting greater than 10 lb for 1 more week and avoid fatty foods for approximately 1 month. She should return as needed. Coding Level of Care Code Global (21707) Diagnoses Calculus of gallbladder with acute cholecystitis without obstruction K80.00 Biliary obstruction: without biliary obstruction
[2023-03-19 09:35] VITALS: BP 135/86; PULSE 75; BMI 33.1
== END 2023-03-19 09:49 | disposition home or self-care (01) ==
PROVIDERS: PCP Internal Medicine; Visit Provider Surgery
DX: K80.00 Calculus of gallbladder with acute cholecystitis without obstruction (principal)
CPT/HCPCS: 99024

== ENCOUNTER → 2023-03-19 09:25 | Outpatient (BNVA) | payer OTHER, SELFPAY | PROVIDERS: PCP Internal Medicine; Visit Provider Surgery ==

== ENCOUNTER 2023-05-16 13:15 | Outpatient (AMB) | payer OTHER, SELFPAY ==
[2023-05-16 13:16] VITALS: BP 136/90; PULSE 87; O2SAT 99; BMI 33.8
--- NOTE | 2023-05-16 13:16 | A.OFFPC_ITS ---
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: No Allergies beclomethasone [From QVAR] Allergy (Severe, Verified 05/16/23 13:17) ANAPHYLAXIS,CHEST TIGHTNESS cyclobenzaprine Adverse Reaction (Intermediate, Verified 05/16/23 13:17) restless leg Medication List - Last Reconciled 05/16/23 by Mayo Garcia MD [AGELESS LX 3 caps PO .QD] albuterol sulfate 90 mcg/actuation (ProAir HFA) 2 puffs inhalation Q6H PRN 90 days [BETTER Lungs PO .QD] citalopram 20 mg PO DAILY multivitamin 1 tab PO DAILY omeprazole 20 mg PO DAILY 90 days omeprazole 20 mg PO DAILY tamoxifen 10 mg PO .QOD tretinoin 0.05% 1 appl topical BID triamcinolone acetonide 0.5% 1 appl topical BID zolpidem (Ambien) 5 mg PO BEDTIME PRN Tobacco use date assessed: 05/16/23 Dental Screening Dental Screen Date: 05/16/23 Did you have a dental visit in the last 12 months?: No Did you have a dental problem in the last 6 months where you did not have access to dental care?: No HPI Med Refill HPI Details 52-year-old obese female status post lap aroscopic gastrectomy GERD hypercholesterolemia fatty liver coming in for follow-up. Last seen in June 2022 patient's mammogram is due, colonoscopy up-to-date October 2015. ER visit for abdominal pain January 2023 with right upper quadrant pain review of the notes laparoscopic cholecystectomy 03/11/2023, has insomnia and exhasuted. [facility] Medical History Asthma Chest pain Neck pain Intercostal muscle pain Cough Otitis externa Colon cancer screening Overweight (BMI 25.0-29.9) Wound abscess Cellulitis of ear Menorrhagia Anemia Uterine fibroid Fatty liver Hypertriglyceridemia Vitamin D deficiency GERD (gastroesophageal reflux disease) Restless leg syndrome Atypical hyperplasia of right breast Surgical History Hx of dilation and curettage History of endometrial ablation Status post laparoscopic sleeve gastrectomy History of appendectomy History of reduction mammoplasty Family History Maternal Aunt Heart attack Lung cancer Uterine cancer Maternal Grandmother Lung cancer Social History Housing: House Alcohol intake: current Alcohol intake frequency: does not drink Alcohol type: wine Comment: none Patient Tobacco Use Status: Never used Tobacco e-Cigarette/Vaping Use: Never Used Second Hand Smoke Exposure: No Substance Use Type: Marijuana service: No Current occupational status: employed Cognitive needs: No Hearing needs: No Vision needs: Yes (glasses) Questionnaire PHQ-9 Over the last 2 weeks, how often have you been bothered by any of the following problems? 1. Little interest or pleasure in doing things: not at all 2. Feeling down, depressed, or hopeless: not at all 3. Trouble falling or staying asleep, or sleeping too much: not at all 4. Feeling tired or having little energy: not at all 5. Poor appetite or overeating: not at all 6. Feeling bad about yourself - or that you are a failure or have let yourself or your family down: not at all 7. Trouble concentrating on things, such as reading the newspaper or watching television: not at all 8. Moving or speaking so slowly that other people could have noticed. Or the opposite - being so fidgety or restless that you have been moving around a lot more than usual: not at all 9. Thoughts that you would be better off or of hurting yourself in some way: not at all Total score: 0 Depression Screening Interpretation: Negative Depression Screening Done: Yes Source: Developed by Drs. Vinay Winkler, Kacey Faith, Berhane Bah and colleagues, with an educational radha from [employer]. Thrive Questionnaire Date Thrive assessed: 05/02/21 AUDIT C Alcohol Use Questionnaire (AUDIT-C) 1. How often do you have a drink containing alcohol?: Monthly or less 2. How many drinks containing alcohol do you have on a typical day when you are drinking?: 1 or 2 3. How often do you have six or more drinks on one occasion?: Never Total Score: 1 Score Reviewed/Action Taken: Yes (no action needed) LISA-7 AMB Questionnaire LISA-7 Date LISA - 7 assessed: 05/16/23 Source: Developed by Drs. Vinay Winkler, Kacey Faith, Berhane Bah and colleagues, with an educational radha from [employer]. Physical exam (Primary Care) Vital Signs: Last Vital Signs Pulse 87 05/16/23 13:16 BP 136/90 H 05/16/23 13:16 Pulse Ox 99 05/16/23 13:16 Oxygen Delivery Method Room Air 05/16/23 13:16 BMI result Body Mass Index 33.8 Tobacco/Smoking Status: Tobacco use Status Tobacco use date assessed 05/16/23 05/16/23 13:17 Patient Tobacco Use Status Never used Tobacco 05/16/23 13:17 e-Cigarette/Vaping Use Never Used 05/16/23 13:17 PHQ-9: PHQ-9 Score PHQ-9: Total score 0 05/16/23 13:33 Depression Screening Interpretation: Negative Thrive Assessment: Date of Thrive Assessment Date Thrive assessed 05/02/21 05/16/23 13:17 Const General: alert; No acute distress Eyes Conjunctivae: conjunctivae normal Resp Auscultation: clear to auscultation bilaterally Cardio Rate: regular rate Rhythm: regular rhythm GI Inspection: Yes normal to inspection Extrem General: Yes normal to inspection and No edema Immunizations pneumoc 20-lizbeth conj-dip cr(PF) 0.5 mL IM syringe Performing Provider: Mayo Garcia MD Performing Location: [facility] Administered by: VIET Courtney on 05/16/23 13:51 Dose Route Admin Location Dispensed Lot Number Expiration Date NDC Band Top Maker 0.5 mL IM Left Deltoid 0.5 mL [id number] 05/30/24 5672-9339-03 WYETH/PFIZER VIS Given Date VIS Provided VIS Publication Date 05/16/23 Single Vaccine 21 Eligibility Eligibility Date Funding Source Not VFC Eligible 05/16/23 Private Assessment and Plan Assessment & Plan (1) Cholecystitis, acute with cholelithiasis: Comment: Cholecystectomy 03/11/2023 Code(s): K80.00 - Calculus of gallbladder with acute cholecystitis without obstruction Qualifiers: Biliary obstruction: without biliary obstruction Qualified Code(s): K80.00 - Calculus of gallbladder with acute cholecystitis without obstruction Plan: Patient doing good advised low-fat diet (2) Atypical lobular hyperplasia (ALH) of breast: Comment: Mammogram December 2022 Code(s): N60.99 - Unspecified benign mammary dysplasia of unspecified breast Plan: Up-to-date with mammogram and continue to follow-up (3) Obesity (BMI 30-39.9): Code(s): E66.9 - Obesity, unspecified Plan: Diet and exercise (4) Status post laparoscopic sleeve gastrectomy: Comment: August 2017 Code(s): Z98.84 - Bariatric surgery status Plan: Has followed up with bariatric surgeon and notes started on semaglutide? (5) GERD (gastroesophageal reflux disease): Comment: Upper GI series February 2006 Code(s): K21.9 - Gastro-esophageal reflux disease without esophagitis Qualifiers: Esophagitis presence: without esophagitis Qualified Code(s): K21.9 - Gastro-esophageal reflux disease without esophagitis Plan: Avoid the foods that causes that usually spicy foods, tomato products, juices, coffee, soda and foods that your sensitive to. After eating do not lie down, allow 3-4 hours before in lie down. And keep the head of bed above 30 degrees to avoid the acid from going up. (6) Asthma: Comment: PULMONARY FUNCTION TEST SHOWED PATTERN OF MILD BRONCHIAL ASTHMA, WITH GOOD RESPONSE TO BD .THERAPY EXPLAINED ABOUT THIS IN DETAIL. TX: BASICALLY WHAT SHE NEEDS IS ALBUTEROL HFA P.R.N.. SHE HAS BEEN USING SYMBICORT 80-4.52 PUFFS B.I.D. BUT I TOLD HER TO USE IT ONLY NEEDED. ( IF ASTHMA ATTACKS BECOME MORE FREQUENT) I REVIEWED THE REPORT OF PULMONARY FUNCTION TEST WITH HER. AND SHE UNDERSTANDS WELL Code(s): J45.909 - Unspecified asthma, uncomplicated Plan: Continue with inhaler as needed (7) Insomnia: Code(s): G47.00 - Insomnia, unspecified Plan: Continue with the sleeping medication as needed (8) Blood pressure elevated without history of HTN: Code(s): R03.0 - Elevated blood-pressure reading, without diagnosis of hypertension Plan: would have to monitor BP and record Orders: Orders Vitamin B12 and Folate Today E78.1 - Pure hyperglyceridemia Vitamin D 25-OH Total Today E78.1 - Pure hyperglyceridemia Lipid Panel Today E78.00 - Pure hypercholesterolemia, unspecified, E78.1 - Pure hyperglyceridemia Hemoglobin A1c Today E78.1 - Pure hyperglyceridemia Pneumococcal 20 Immunization Today Z23 - Encounter for immunization Complete Blood Count Auto Diff Today E78.1 - Pure hyperglyceridemia Comprehensive Met. Panel Today E78.1 - Pure hyperglyceridemia Free T4 (Free Thyroxine) Today E78.1 - Pure hyperglyceridemia Thyroid Stimulating Hormone Today E78.1 - Pure hyperglyceridemia Medications: New omeprazole 20 mg PO DAILY 30 caps 0RF K21.9 - Gastro-esophageal reflux disease without esophagitis liraglutide (weight loss) (Saxenda) inject subcutaneously once daily: week 1 = 0.6 mg; week 2 = 1.2 mg; week 3 = 1.8 mg; week 4 = 2.4 mg; then 3 mg daily subcut 15 mL 0RF E66.9 - Obesity, unspecified Refilled albuterol sulfate 90 mcg/actuation (ProAir HFA) 2 puffs inhalation Q6H PRN 8.5 grams 0RF bronchospasm 90 days J45.909 - Unspecified asthma, uncomplicated zolpidem (Ambien) 5 mg PO BEDTIME PRN 14 tabs 0RF sleep G47.00 - Insomnia, unspecified Discontinued pantoprazole (Protonix) Discontinued Reason: Entered in error 40 mg PO DAILY 20 tabs 0RF oxycodone Partial Fill upon patient request. Discontinued Reason: Patient Completed Course 5 mg PO Q6H PRN 15 tabs 0RF pain (scale score 7-10) ondansetron Discontinued Reason: Doctor's Order 4 mg PO Q8H 4 days 12 tabs 0RF omeprazole Discontinued Reason: Duplicate 20 mg PO DAILY 90 days 90 caps 1RF K21.9 - Gastro-esophageal reflux disease without esophagitis [id number]-[id number]-YL 3.5-10,000-1 mg/mL-unit/mL-% Discontinued Reason: Doctor's Order 4 drps otic (ears) Q8H 10 days 10 mL 0RF Coding Level of Care Code Est Pt Level 4 (36339) Diagnoses Calculus of gallbladder with acute cholecystitis without obstruction K80.00 Biliary obstruction: without biliary obstruction Atypical lobular hyperplasia (ALH) of breast N60.99 Obesity (BMI 30-39.9) E66.9 Status post laparoscopic sleeve gastrectomy Z98.84 Gastroesophageal reflux disease without esophagitis K21.9 Esophagitis presence: without esophagitis Asthma J45.909 Insomnia G47.00 Blood pressure elevated without history of HTN R03.0
== END 2023-05-16 13:55 | disposition home or self-care (01) ==
PROVIDERS: PCP Internal Medicine; Visit Provider Internal Medicine
DX: K80.00 Calculus of gallbladder with acute cholecystitis without obstruction (principal); Z68.33 Body mass index [BMI] 33.0-33.9, adult; E66.9 Obesity, unspecified; Z23 Encounter for immunization; N60.99 Unspecified benign mammary dysplasia of unspecified breast; Z98.84 Bariatric surgery status; K21.9 Gastro-esophageal reflux disease without esophagitis; J45.909 Unspecified asthma, uncomplicated; G47.00 Insomnia, unspecified; R03.0 Elevated blood-pressure reading, without diagnosis of hypertension
CPT/HCPCS: 90471; 90677; 99214

== ENCOUNTER 2023-11-13 09:07 | Outpatient (REF) | payer OTHER, SELFPAY ==
[2023-11-13 09:21] LABS: MANUAL DIFF FLAG NO
[2023-11-13 09:50] LABS: Basophils Absolute Auto 0.1 X10*3/uL (0.0-0.2); Basophils Percent Auto 1.3 % (0-2); Eosinophils Absolute Auto 0.8 X10*3/uL (0.0-0.4); Hematocrit 38.6 % (37.0-47.0); Hemoglobin 12.8 g/dl (12.0-16.0); Imm Gran Abs Auto 0.03 X10*3/uL (0.00-0.03); Imm Gran Pct Auto 0.4 % (0.0-0.4); Lymphocytes Absolute Auto 3.3 X10*3/uL (1.2-4.9); Lymphocytes Percent Auto 39.7 % (20-40); Mean Corpuscular HGB Conc 33.2 g/dl (31.0-35.0); Mean Corpuscular Hemoglobin 29.4 pg (27.0-33.0); Mean Corpuscular Volume 88.7 fL (80.0-98.0); Mean Platelet Volume 9.6 fL (9.4-12.3); Monocytes Absolute Auto 0.4 X10*3/uL (0.1-1.2); Neutrophils Absolute Auto 3.6 x10*3/uL (2.0-8.3); Neutrophils Percent Auto 43.6 % (45-73); Platelet Count 361 X10*3/uL (160-400); Red Blood Count 4.35 X10*6/uL (4.20-5.50); Red Cell Distribution Width 12.7 % (11.0-16.0); White Blood Count 8.2 X10*3/uL (4.8-10.8)
[2023-11-13 11:08] LABS: Alanine Aminotransferase 29 U/L (0-31); Albumin Level 4.2 g/dL (3.5-5.0); Alkaline Phosphatase 57 U/L (39-117); Anion Gap 15 (12-20); Aspartate Amino Transferase 31 U/L (5-31); Bilirubin Total 0.4 mg/dL (0.0-1.0); Blood Urea Nitrogen 11 mg/dL (9-16); Calcium 9.4 mg/dL (8.4-10.2); Carbon Dioxide 25 mmol/L (22-29); Chloride 105 mmol/L (96-108); Cholesterol 229 mg/dL (<200); Estimated Glomerular Filt Rate > 60; Free T4 (Free Thyroxine) 0.76 ng/dL (0.71-1.85); Glucose Random 101 mg/dL (60-115); HDL Cholesterol 56 mg/dL (>40); LDL Cholesterol Calculated 132 mg/dL (<100); Potassium 4.1 mmol/L (3.3-5.1); Sodium 141 mmol/L (135-145); Thyroid Stimulating Hormone 1.71 uIU/mL (0.32-4.0); Total Protein 7.4 g/dL (6.5-8.0); Triglycerides 208 mg/dL (<150); Vitamin D 25-OH Total 42.7 ng/mL (>30)
[2023-11-13 12:28] LABS: Estimated Average Glucose 108 mg/dL; Hemoglobin A1c % 5.4 % (<6.0)
[2023-11-13 14:27] LABS: Folate 9.6 ng/mL (> or = 4.0); Vitamin B12 521 pg/mL (200-900)
== END 2023-11-13 09:08 | disposition home or self-care (01) ==
LOC: HO.LAB 09:07
PROVIDERS: PCP Internal Medicine; Visit Provider Internal Medicine
DX: E78.1 Pure hyperglyceridemia (principal); E78.00 Pure hypercholesterolemia, unspecified; Z13.1 Encounter for screening for diabetes mellitus
CPT/HCPCS: 36415; 80053; 80061; 82306; 82607; 82746; 83036; 84439; 84443; 85025

== ENCOUNTER 2023-11-14 13:13 | Outpatient (AMB) | payer OTHER, SELFPAY ==
[2023-11-14 13:14] VITALS: BP 128/68; PULSE 78; O2SAT 96; BMI 34.0
--- NOTE | 2023-11-14 13:14 | A.OFFPC_ITS ---
Vital Signs 11/14/23 13:14 Height 5 ft 4 in Weight 198 lb BMI 34.0 BP 128/68 Blood Pressure Location Lt brachial Position Sitting Pulse 78 Pulse Source Pulse Oximeter Pulse Oximetry (%) 96 Oxygen Delivery Method Room Air Intake Visit Reasons: 3M Follow Up Intake Note: Having an asthma flare up Allergies beclomethasone [From QVAR] Allergy (Severe, Verified 11/14/23 13:15) ANAPHYLAXIS,CHEST TIGHTNESS cyclobenzaprine Adverse Reaction (Intermediate, Verified 11/14/23 13:15) restless leg Tobacco use date assessed: 05/16/23 Dental Screening Dental Screen Date: 11/14/23 Did you have a dental visit in the last 12 months?: No Did you have a dental problem in the last 6 months where you did not have access to dental care?: No Was dental information given to patient?: No HPI 3M Follow Up HPI Details 53-year-old obese female with a history of atypical lobular hyperplasia of the breast status post laparoscopic gastrectomy GERD asthma coming in for follow-up. Last seen in 05/18/2023. Patient is up-to-date with mammogram 01/16/2023 and has ask for semaglutide. 1 months sob, no fever, no sore throat patient was not able to get the semaglutide nor any of the weight loss medications. Concern about the weight. But presently has a problem with breathing no fevers. And this has been going on for about a month. Patient also is asking for sleeping medication. Has also had blood work done. [facility] Medical History Asthma Chest pain Neck pain Intercostal muscle pain Cough Otitis externa Colon cancer screening Overweight (BMI 25.0-29.9) Wound abscess Cellulitis of ear Menorrhagia Anemia Uterine fibroid Fatty liver Hypertriglyceridemia Vitamin D deficiency GERD (gastroesophageal reflux disease) Restless leg syndrome Atypical hyperplasia of right breast Surgical History Hx of dilation and curettage History of endometrial ablation Status post laparoscopic sleeve gastrectomy History of appendectomy History of reduction mammoplasty Family History Maternal Aunt Heart attack Lung cancer Uterine cancer Maternal Grandmother Lung cancer Social History Housing: House Alcohol intake: current Alcohol intake frequency: does not drink Alcohol type: wine Comment: none Patient Tobacco Use Status: Never used Tobacco e-Cigarette/Vaping Use: Never Used Second Hand Smoke Exposure: No Substance Use Type: Marijuana service: No Current occupational status: employed Cognitive needs: No Hearing needs: No Vision needs: Yes (glasses) Questionnaire PHQ-9 Over the last 2 weeks, how often have you been bothered by any of the following problems? 1. Little interest or pleasure in doing things: not at all 2. Feeling down, depressed, or hopeless: not at all 3. Trouble falling or staying asleep, or sleeping too much: not at all 4. Feeling tired or having little energy: not at all 5. Poor appetite or overeating: not at all 6. Feeling bad about yourself - or that you are a failure or have let yourself or your family down: not at all 7. Trouble concentrating on things, such as reading the newspaper or watching television: not at all 8. Moving or speaking so slowly that other people could have noticed. Or the opposite - being so fidgety or restless that you have been moving around a lot more than usual: not at all 9. Thoughts that you would be better off or of hurting yourself in some way: not at all Total score: 0 Depression Screening Interpretation: Negative Depression Screening Done: Yes Source: Developed by Drs. Vinay Winkler, Kacey Faith, Berhane Bah and colleagues, with an educational radha from [employer]. Thrive Questionnaire Date Thrive assessed: 11/14/23 I am a: Patient What is your living situation today?: I have a steady place to live Within the past 12 months, did the food you bought not last and you didn't have the money to get more?: Never true Within the past 12 months, did you worry whether your food would run out before you got money to buy more?: Never true Do you have trouble paying for medicines?: No Do you have trouble getting transportation to medical appointments?: No Do you have trouble paying your heating and electricity bill?: No Do you have trouble taking care of your child, family member or friend?: No Do you have trouble with day-to-day activities such as bathing, preparing meals, shopping, managing finances, etc.?: No Are you currently unemployed and looking for a job?: No Are you interested in more education?: No Currently or been in a relationship where the following occur: No concerns reported THRIVE Score: 0 AUDIT C Alcohol Use Questionnaire (AUDIT-C) 1. How often do you have a drink containing alcohol?: Monthly or less 2. How many drinks containing alcohol do you have on a typical day when you are drinking?: 1 or 2 3. How often do you have six or more drinks on one occasion?: Never Total Score: 1 Score Reviewed/Action Taken: Yes (no action needed) LISA-7 AMB Questionnaire LISA-7 Date LISA - 7 assessed: 05/16/23 Source: Developed by Drs. Vinay Winkler, Kacey Faith, Berhane Bah and colleagues, with an educational radha from [employer]. Physical exam (Primary Care) Vital Signs: Last Vital Signs Pulse 78 11/14/23 13:14 BP 128/68 11/14/23 13:14 Pulse Ox 96 11/14/23 13:14 Oxygen Delivery Method Room Air 11/14/23 13:14 BMI result Body Mass Index 34.0 Tobacco/Smoking Status: Tobacco use Status Tobacco use date assessed 05/16/23 11/14/23 13:16 Patient Tobacco Use Status Never used Tobacco 11/14/23 13:16 e-Cigarette/Vaping Use Never Used 11/14/23 13:16 PHQ-9: PHQ-9 Score PHQ-9: Total score 0 11/14/23 13:23 Depression Screening Interpretation: Negative Thrive Assessment: Date of Thrive Assessment Date Thrive assessed 11/14/23 11/14/23 13:16 Currently or been in a relationship where the following occur: No concerns reported Const General: alert; No acute distress Eyes Conjunctivae: conjunctivae normal Resp Other: Rhonchi bilaterally noted and wheezing bilateral Cardio Rate: regular rate Rhythm: regular rhythm GI Inspection: Yes normal to inspection Extrem General: Yes normal to inspection and No edema Assessment and Plan Assessment & Plan (1) Status post laparoscopic sleeve gastrectomy: Comment: August 2017 Code(s): Z98.84 - Bariatric surgery status Plan: Keep active eat healthy keep well hydrated. (2) GERD (gastroesophageal reflux disease): Comment: Upper GI series February 2006 Code(s): K21.9 - Gastro-esophageal reflux disease without esophagitis Qualifiers: Esophagitis presence: without esophagitis Qualified Code(s): K21.9 - Gastro-esophageal reflux disease without esophagitis Plan: Avoid the foods that causes that usually spicy foods, tomato products, juices, coffee, soda and foods that your sensitive to. After eating do not lie down, allow 3-4 hours before in lie down. And keep the head of bed above 30 degrees to avoid the acid from going up. (3) Obesity (BMI 30-39.9): Code(s): E66.9 - Obesity, unspecified Plan: Diet and exercise (4) Asthma: Comment: Longstanding history of mild intermittent bronchial asthma, off allergic etiology. Multiple triggers, especially physical activity, cold air, working with chemical sprays, exposure to diaz environment, and CAT. Had detailed discussion with the patient, Avoidance of exposure to the triggers is stressed. TX : Continue using Symbicort 80-4.52 puffs b.i.d. Use albuterol HFA 2 puffs Q 6 hours only p.r.n. PULMONARY FUNCTION TEST IS BEING ORDERED , AND WILL REVIEW THE RESULTS AND SEE IF WE NEED TO UPGRADE THE TREATMENT REGIMEN. WILL ALSO CHECK IGE LEVEL AND EOSINOPHIL COUNT. Code(s): J45.909 - Unspecified asthma, uncomplicated Plan: Continue with inhaler albuterol as needed (5) Atypical lobular hyperplasia (ALH) of breast: Comment: Mammogram December 2022 Code(s): N60.99 - Unspecified benign mammary dysplasia of unspecified breast Plan: Patient is on tamoxifen and up-to-date with mammogram (6) Blood pressure elevated without history of HTN: Code(s): R03.0 - Elevated blood-pressure reading, without diagnosis of hypertension Plan: Blood pressure has come down (7) Asthmatic bronchitis: Code(s): J45.909 - Unspecified asthma, uncomplicated Plan: antibiotic and inhaler and prednisone sent (8) Insomnia: Code(s): G47.00 - Insomnia, unspecified Plan: zolpidem med (9) Stress incontinence: Code(s): N39.3 - Stress incontinence (female) (male) Medications: New prednisone 4 tabs QD x 2 days then 3 tabs QD x 2 days then 2 tabs Qd x 2 days then 1 tab QD x 2 days PO daily; 20 tabs 0RF J45.909 - Unspecified asthma, uncomplicated doxycycline hyclate 100 mg PO BID 14 caps 0RF J45.909 - Unspecified asthma, uncomplicated Discontinued liraglutide (weight loss) (Saxenda) Discontinued Reason: Duplicate inject subcutaneously once daily: week 1 = 0.6 mg; week 2 = 1.2 mg; week 3 = 1.8 mg; week 4 = 2.4 mg; then 3 mg daily subcut 15 mL 0RF E66.9 - Obesity, unspecified Coding Level of Care Code Est Pt Level 4 (04445) Diagnoses Status post laparoscopic sleeve gastrectomy Z98.84 Gastroesophageal reflux disease without esophagitis K21.9 Esophagitis presence: without esophagitis Obesity (BMI 30-39.9) E66.9 Asthma J45.909 Atypical lobular hyperplasia (ALH) of breast N60.99 Blood pressure elevated without history of HTN R03.0 Asthmatic bronchitis J45.909 Insomnia G47.00 Stress incontinence N39.3
== END 2023-11-14 13:50 | disposition home or self-care (01) ==
PROVIDERS: PCP Internal Medicine; Visit Provider Internal Medicine
DX: K21.9 Gastro-esophageal reflux disease without esophagitis (principal); E66.9 Obesity, unspecified; Z68.34 Body mass index [BMI] 34.0-34.9, adult; J45.909 Unspecified asthma, uncomplicated; Z98.84 Bariatric surgery status; N60.99 Unspecified benign mammary dysplasia of unspecified breast; R03.0 Elevated blood-pressure reading, without diagnosis of hypertension; G47.00 Insomnia, unspecified; N39.3 Stress incontinence (female) (male)
CPT/HCPCS: 99214

== ENCOUNTER 2023-12-03 10:17 | Outpatient (AMB) | payer OTHER, SELFPAY ==
[2023-12-03 10:20] VITALS: BP 128/90; PULSE 74; O2SAT 96; BMI 33.3
--- NOTE | 2023-12-03 10:20 | MHC.PC.OV ---
Vital Signs 12/03/23 10:20 Height 5 ft 4 in Weight 194 lb 0.6 oz BMI 33.3 BP 128/90 H Blood Pressure Location Lt brachial Position Sitting Pulse 74 Pulse Source Pulse Oximeter Pulse Oximetry (%) 96 Oxygen Delivery Method Room Air Intake Visit Reasons: Asthma Marketing Trainee Required: No Allergies beclomethasone [From QVAR] Allergy (Severe, Verified 12/03/23 10:20) ANAPHYLAXIS,CHEST TIGHTNESS cyclobenzaprine Adverse Reaction (Intermediate, Verified 12/03/23 10:20) restless leg Medication List - Last Reconciled 12/03/23 by Ronel Garcia PA-C [AGELESS LX 3 caps PO .QD] albuterol sulfate 90 mcg/actuation 2 puffs inhalation Q6H PRN 90 days [BETTER Lungs PO .QD] citalopram 20 mg PO DAILY multivitamin 1 tab PO DAILY omeprazole 20 mg PO DAILY tamoxifen 10 mg PO .QOD tretinoin 0.05% 1 appl topical BID triamcinolone acetonide 0.5% 1 appl topical BID zolpidem (Ambien) 5 mg PO BEDTIME PRN Tobacco use date assessed: 05/16/23 Dental Screening Dental Screen Date: 11/14/23 HPI Asthma HPI Details 53-year-old female with past medical history of asthma, fatty liver, hypertriglyceridemia, GERD last seen by Dr. Garcia 10/2023 coming in for acute problem. Patient states she has been dealing with asthma for several years and when last seen by [employer] Program Technician recommended discontinuation of Symbicort which she had previously been on with good relief. July she had upper respiratory infection which carried throughout the month and worsened in October. She was seen by Dr. Garcia 10/2023 and given Doxycycline and Prednisone which gave her good relief but she is now worse than her last exacerbation. She has been having cough and wheezing for the last week and has no relief from inhalers. Denies fevers. [facility] Medical History Asthma Chest pain Neck pain Intercostal muscle pain Cough Otitis externa Colon cancer screening Overweight (BMI 25.0-29.9) Wound abscess Cellulitis of ear Menorrhagia Anemia Uterine fibroid Fatty liver Hypertriglyceridemia Vitamin D deficiency GERD (gastroesophageal reflux disease) Restless leg syndrome Atypical hyperplasia of right breast Surgical History Hx of dilation and curettage History of endometrial ablation Status post laparoscopic sleeve gastrectomy History of appendectomy History of reduction mammoplasty Family History Maternal Aunt Heart attack Lung cancer Uterine cancer Maternal Grandmother Lung cancer Social History Housing: House Alcohol intake: current Alcohol intake frequency: does not drink Alcohol type: wine Comment: none Patient Tobacco Use Status: Never used Tobacco e-Cigarette/Vaping Use: Never Used Second Hand Smoke Exposure: No Substance Use Type: Marijuana service: No Current occupational status: employed Cognitive needs: No Hearing needs: No Vision needs: Yes (glasses) Questionnaire Thrive Questionnaire Date Thrive assessed: 11/14/23 I am a: Patient What is your living situation today?: I have a steady place to live Within the past 12 months, did the food you bought not last and you didn't have the money to get more?: Never true Within the past 12 months, did you worry whether your food would run out before you got money to buy more?: Never true Do you have trouble paying for medicines?: No Do you have trouble getting transportation to medical appointments?: No Do you have trouble paying your heating and electricity bill?: No Do you have trouble taking care of your child, family member or friend?: No Do you have trouble with day-to-day activities such as bathing, preparing meals, shopping, managing finances, etc.?: No Are you currently unemployed and looking for a job?: No Are you interested in more education?: No Currently or been in a relationship where the following occur: No concerns reported THRIVE Score: 0 AUDIT C Alcohol Use Questionnaire (AUDIT-C) 1. How often do you have a drink containing alcohol?: Monthly or less 2. How many drinks containing alcohol do you have on a typical day when you are drinking?: 1 or 2 3. How often do you have six or more drinks on one occasion?: Never Total Score: 1 Score Reviewed/Action Taken: Yes (no action needed) LISA-7 AMB Questionnaire LISA-7 Date LISA - 7 assessed: 05/16/23 Source: Developed by Drs. Vinay Winkler, Kacey Faith, Berhane Bah and colleagues, with an educational radha from [employer]. Review of Systems Const Denies body aches, Denies chills, Denies fever(s), Denies headache(s) and Denies poor appetite Eyes Reports no additional complaints ENT Denies dizziness and Denies headache(s) Card Denies chest pain, Denies syncope, Denies edema, Denies irregular heart rhythm, Denies lightheadedness and Reports dyspnea Resp Reports cough, Denies hemoptysis and Reports dyspnea GI Denies abdominal pain, Denies constipation, Denies diarrhea, Denies nausea and Denies vomiting Reports no additional complaints Musc Reports no additional complaints and Denies abnormal gait Skin/Breast Reports system reviewed and no additional complaints, except as documented Neuro Denies abnormal gait, Denies dizziness, Denies syncope and Denies headache(s) Psych Reports no additional complaints Physical exam (Primary Care) Vital Signs: Last Vital Signs Pulse 74 12/03/23 10:20 BP 128/90 H 12/03/23 10:20 Pulse Ox 96 12/03/23 10:20 Oxygen Delivery Method Room Air 12/03/23 10:20 BMI result Body Mass Index 33.3 Tobacco/Smoking Status: Tobacco use Status Tobacco use date assessed 05/16/23 12/03/23 10:21 Patient Tobacco Use Status Never used Tobacco 12/03/23 10:21 e-Cigarette/Vaping Use Never Used 12/03/23 10:21 Thrive Assessment: Date of Thrive Assessment Date Thrive assessed 11/14/23 12/03/23 10:21 Currently or been in a relationship where the following occur: No concerns reported Const General: cooperative, healthy appearing, comfortable and no acute distress Orientation/consciousness: patient oriented x3 HENMT Head: Yes normocephalic Ears: hearing grossly normal bilaterally General nose exam: Normal external nose present Eyes General: appearance normal, both eyes and all related structures Conjunctivae: conjunctivae normal Neck Neck: Yes full ROM and Yes no lymphadenopathy Resp Effort & Inspection: normal respiratory effort, able to speak in complete sentences, audible wheezes and Actively coughing Quality: dry Auscultation: no crackles, no rales, no rhonchi, wheezes expiratory wheezes and throughout and lung sounds not diminished Cardio Rate: regular rate Rhythm: regular rhythm Skin General skin exam: no rashes or lesions noted Neuro General: patient oriented x3 Gait exam (Neuro): Normal gait present Extrem General: Yes normal to inspection, Yes full ROM and No edema Psych Affect: normal affect Attitude: cooperative Insight: Good insight present (Psych) Judgement: Good judgement present (Psych) Assessment and Plan Assessment & Plan (1) Cough: Comment: Cough is of allergic type/ Asthma Variant in her case. Explained in detail , no need of cough medicine. Code(s): R05.9 - Cough, unspecified Plan: Patient was just treated with course of prednisone and doxycycline with good relief however symptoms returned this week. She has wheezing throughout lung arenas while in the office today. Has declined nebulizer treatment in the office today for symptoms. Prescription for prednisone along with inhaled corticosteroid sent to pharmacy today. Ordered for chest x-ray. Patient to follow up with pulmonology. Please follow up with us if your symptoms worsen or do not improve. Plan This note was constructed using voice recognition software. While every effort has been made to ensure accuracy and fruit worker, still areas may have been included sometimes these areas may affect the content or meeting of the given symptoms. Total time spent caring for the patient today was 20 minutes. This includes time spent before the visit reviewing the chart, time spent during the visit, and time spent after the visit and documentation. Orders: Orders XR chest 2V Today R05.9 - Cough, unspecified Medications: New budesonide 90 mcg/actuation (Pulmicort Flexhaler) 1 inh inhalation BID 30 days 1 ea 2RF Refilled prednisone 4 tabs QD x 2 days then 3 tabs QD x 2 days then 2 tabs Qd x 2 days then 1 tab QD x 2 days PO daily; 20 tabs 0RF J45.909 - Unspecified asthma, uncomplicated Coding Level of Care Code Est Pt Level 4 (86730) Diagnoses Cough R05.9
== END 2023-12-03 11:09 | disposition home or self-care (01) ==
PROVIDERS: PCP Internal Medicine
DX: R05.9 Cough, unspecified (principal)
CPT/HCPCS: 99214

== ENCOUNTER 2024-03-20 14:46 | Outpatient (AMB) | payer OTHER, SELFPAY ==
--- NOTE | 2024-03-20 14:47 | MHC.OFFVIS ---
Vital Signs 03/20/24 14:50 Height 5 ft 4 in Weight 184 lb BMI 31.6 BP 114/82 Blood Pressure Location Lt brachial Position Sitting Intake Visit Reasons: pmb / ? emb ok per vickie Allergies beclomethasone [From QVAR] Allergy (Severe, Verified 03/20/24 15:00) ANAPHYLAXIS,CHEST TIGHTNESS cyclobenzaprine Adverse Reaction (Intermediate, Verified 03/20/24 15:00) restless leg HPI Comments Details: Patient is here today with concerns that she has had some bleeding for the last 3 days, LMP 02/15/2023. She reports changing her pad 3 times a day in experiencing pelvic cramping, history of constipation has recently started Benefiber. She had a prior hysteroscopy D&C in 2022 with benign pathology. Prior she had gone 11 months without a menses. History of tamoxifen user. She reports feeling externally dry at times slight irritation. [facility] Medical History (Updated 03/20/24 @ 15:23 by Jaye Ivory CNM) Cough Asthma Chest pain Neck pain Intercostal muscle pain Otitis externa Colon cancer screening Overweight (BMI 25.0-29.9) Wound abscess Cellulitis of ear Menorrhagia Anemia Uterine fibroid Fatty liver Hypertriglyceridemia Vitamin D deficiency GERD (gastroesophageal reflux disease) Restless leg syndrome Atypical hyperplasia of right breast Surgical History Hx of dilation and curettage History of endometrial ablation Status post laparoscopic sleeve gastrectomy History of appendectomy History of reduction mammoplasty Family History Maternal Aunt Heart attack Lung cancer Uterine cancer Maternal Grandmother Lung cancer Social History Housing: House Alcohol intake: current Alcohol intake frequency: does not drink Alcohol type: wine Comment: none Patient Tobacco Use Status: Never used Tobacco e-Cigarette/Vaping Use: Never Used Second Hand Smoke Exposure: No Substance Use Type: Marijuana service: No Current occupational status: employed Cognitive needs: No Hearing needs: No Vision needs: Yes (glasses) Review of Systems Const All systems reviewed & are unremarkable except as noted in HPI and below Physical Exam Vital Signs: Last Vital Signs BP 114/82 03/20/24 14:50 BMI result Body Mass Index 31.6 Const General: cooperative, healthy appearing and no acute distress Orientation/consciousness: patient oriented x3 GI Inspection: Yes normal to inspection Palpation (GI): Soft to palpation and Other GI palpation findings present (Nontender) Rectal Exam - Female: visual inspection normal General: Yes bladder normal to palpation External Female Exam: normal appearance of the urethra Speculum Exam - Vagina: normal appearance of the vagina, normal palpation, normal vaginal discharge and vaginal bleeding Speculum Exam - Cervix: normal appearance of the cervix and normal palpation Bimanual exam- vagina & uterus: normal bimanual exam, normal palpation, uterine size normal, bladder normal to palpation, normal palpation, uterine shape normal and non-tender Bimanual Exam- Adnexa, other: normal adnexae OB/external & speculum: vaginal bleeding Neuro General: patient oriented x3 Results AMB Test Urine AMB Test Urine Negative Last Edit by Karma Willis CMA on 03/20/24 15:05 Results Reviewed Results Reviewed: Laboratory Last Values Tst Clinic Negative 03/20/24 15:05 Assessment & Plan Assessment & Plan (1) Postmenopausal bleeding: Code(s): N95.0 - Postmenopausal bleeding Category: Medical Plan Discussed: Plan of care to include pelvic ultrasound, FSH, endometrial biopsy. EMB pre-procedure counseling advise 3 Advil 1 hour had of procedure time taken with food and fluids. Call sooner if there is any heavier bleeding or concerns. All of her questions and concerns were addressed to the best of my ability and shared decision making. She is agreeable to the plan of care. This note is constructed using voice recognition software. While every effort has been made to ensure accuracy, commodity merchant errors may have been included. Orders: Orders AMB HCG Urine Test Today Z32.02 - Encounter for test, result negative US pelvic and transvaginal Today N95.0 - Postmenopausal bleeding Follicle Stimulating Hormone Today R23.2 - [place] Coding Level of Care Code Est Pt Level 3 (49286) Diagnoses Postmenopausal bleeding N95.0
[2024-03-20 14:50] VITALS: BP 114/82; BMI 31.6
== END 2024-03-20 16:02 | disposition home or self-care (01) ==
LOC: HO.HWS 14:46
PROVIDERS: PCP Internal Medicine; Visit Provider Advanced Practice Midwife
DX: Z32.02 Encounter for pregnancy test, result negative (principal); N95.0 Postmenopausal bleeding
CPT/HCPCS: 99213

== ENCOUNTER 2024-03-20 14:46 | Outpatient (REF) | payer OTHER, SELFPAY ==
[2024-03-22 08:59] LABS: Follicle Stimulating Hormone 15.9 mIU/mL
== END 2024-03-20 14:47 | disposition home or self-care (01) ==
LOC: HO.LAB 14:46
PROVIDERS: PCP Internal Medicine; Visit Provider Advanced Practice Midwife
DX: R23.2 Flushing (principal); Z32.02 Encounter for pregnancy test, result negative
CPT/HCPCS: 36415; 81025; 83001

== ENCOUNTER 2024-03-30 14:20 | Outpatient (REF) | payer OTHER, SELFPAY | END 2024-03-30 14:21 | disposition home or self-care (01) | LOC: HO.US 14:20 | PROVIDERS: PCP Internal Medicine; Visit Provider Advanced Practice Midwife | DX: N95.0 Postmenopausal bleeding (principal) | CPT/HCPCS: 76830; 76856 ==

== ENCOUNTER → 2024-03-30 14:21 | Outpatient (BNV) | payer OTHER, SELFPAY | PROVIDERS: PCP Internal Medicine; Visit Provider Radiology Diagnostic Radiology | DX: N95.0 Postmenopausal bleeding (principal) | CPT/HCPCS: 76830; 76856 ==

== ENCOUNTER 2024-04-03 12:27 | Outpatient (AMB) | payer OTHER, SELFPAY ==
[2024-04-03 12:30] VITALS: BP 122/72; PULSE 72; O2SAT 99; BMI 31.4
--- NOTE | 2024-04-03 12:30 | MHC.PC.OV ---
Vital Signs 04/03/24 12:30 Height 5 ft 4 in Weight 183 lb BMI 31.4 BP 122/72 Blood Pressure Location Lt brachial Position Sitting Pulse 72 Pulse Source Pulse Oximeter Pulse Oximetry (%) 99 Oxygen Delivery Method Room Air Intake Visit Reasons: Annual exam - see comments Allergies beclomethasone [From QVAR] Allergy (Severe, Verified 04/03/24 12:30) ANAPHYLAXIS,CHEST TIGHTNESS cyclobenzaprine Adverse Reaction (Intermediate, Verified 04/03/24 12:30) restless leg Medication List - Last Reconciled 04/03/24 by Mayo Garcia MD [AGELESS LX 3 caps PO .QD] albuterol sulfate 90 mcg/actuation 2 puffs inhalation Q6H PRN 90 days [BETTER Lungs PO .QD] budesonide 90 mcg/actuation (Pulmicort Flexhaler) 1 inh inhalation BID 30 days multivitamin 1 tab PO DAILY omeprazole 20 mg PO DAILY semaglutide 0.25 mg subcut QWEEK tamoxifen 10 mg PO .QOD tretinoin 0.05% 1 appl topical BID triamcinolone acetonide 0.5% 1 appl topical BID zolpidem (Ambien) 5 mg PO BEDTIME PRN Tobacco use date assessed: 05/16/23 Dental Screening Dental Screen Date: 11/14/23 HPI Annual exam - see comments HPI Details The patient is a 53-year-old female presenting for a routine physical examination. She has a significant medical history including obesity for which she underwent a laparoscopic sleeve gastrectomy in August 2017. The patient has a history of fatty liver, hypertriglyceridemia, and gastroesophageal reflux disease (GERD), for which she is currently prescribed omeprazole. Asthma is managed with Pulmicort and albuterol inhalers. Past surgical history includes bilateral reduction mammoplasty in February 2020. She has experienced postmenopausal bleeding after an absense of menses for 13 months, and has familial history of uterine cancer (aunt who passed at 52) and lung cancer. Blood work in October 2023 indicated hypercholesterolemia with cholesterol levels at 132 mg/dL and triglycerides at 208 mg/dL. She has allergies to cyclobenzaprine and beclomethasone. The last mammogram was due as of this visit and the last colonoscopy was performed in 2015. - Blood work completed in October 2023 showing cholesterol at 132 mg/dL and triglycerides at 208 mg/dL; monitored for hypercholesterolemia management - Received flu vaccination in January 2024 - COVID-19 vaccination completed - Pneumococcal vaccination completed - FSH level indicates non-menopausal state at 15.9 - Regular gynecological follow-ups, awaiting ultrasound results - Mammogram rescheduled to May 21, 2024 - Colonoscopy last performed in 2015, next appointment pending - Prescription of steroid cream for eczema management - Occasionally consumes alcohol, approximately one to two glasses of wine once every three months - Does not smoke tobacco; occasionally consumes marijuana, prefers gummies over smoking - Active lifestyle including hiking a couple of times per week - Diet includes coffee, which may contribute to GERD symptoms, and garlic - Family history includes uterine cancer (mother's side), lung cancer (grandmother and uncle on mother's side), and heart attack (aunt) - Has ten siblings, with one aunt of different health issues - Respiratory: Reports occasional shortness of breath when ill - Cardiovascular: Denies palpitations or dizziness - Gastrointestinal: Reports GERD symptoms, occasional constipation managed with medications - Genitourinary: Reports frequent urination once per night - Neurological: Denies dizziness or recent falls - Dermatological: Reports itchy, flaky ears [facility] Medical History (Updated 04/03/24 @ 17:04 by Mayo Garcia MD) Asthmatic bronchitis Cholecystitis, acute with cholelithiasis Asthma Cough Asthma Chest pain Neck pain Intercostal muscle pain Otitis externa Colon cancer screening Overweight (BMI 25.0-29.9) Wound abscess Cellulitis of ear Menorrhagia Anemia Uterine fibroid Fatty liver Vitamin D deficiency GERD (gastroesophageal reflux disease) Restless leg syndrome Atypical hyperplasia of right breast Surgical History Hx of dilation and curettage History of endometrial ablation Status post laparoscopic sleeve gastrectomy History of appendectomy History of reduction mammoplasty Family History (Updated 04/03/24 @ 12:48 by Mayo Garica MD) Maternal Aunt Heart attack Lung cancer Uterine cancer Maternal Grandmother Lung cancer Maternal Uncle Lung cancer Social History (Updated 04/03/24 @ 12:49 by Mayo Garcia MD) Housing: House Alcohol intake: current Alcohol intake frequency: does not drink Alcohol type: wine Comment: once Q 3 months 1-2 glasses Patient Tobacco Use Status: Never used Tobacco Tobacco use type: Cigarette Years Smoked: marijuana e-Cigarette/Vaping Use: Never Used Second Hand Smoke Exposure: No Substance Use Type: Marijuana service: No Current occupational status: employed Cognitive needs: No Hearing needs: No Vision needs: Yes (glasses) Questionnaire PHQ-9 Over the last 2 weeks, how often have you been bothered by any of the following problems? 1. Little interest or pleasure in doing things: not at all 2. Feeling down, depressed, or hopeless: not at all 3. Trouble falling or staying asleep, or sleeping too much: not at all 4. Feeling tired or having little energy: not at all 5. Poor appetite or overeating: not at all 6. Feeling bad about yourself - or that you are a failure or have let yourself or your family down: not at all 7. Trouble concentrating on things, such as reading the newspaper or watching television: not at all 8. Moving or speaking so slowly that other people could have noticed. Or the opposite - being so fidgety or restless that you have been moving around a lot more than usual: not at all 9. Thoughts that you would be better off or of hurting yourself in some way: not at all Total score: 0 Depression Screening Interpretation: Negative Depression Screening Done: Yes 96335 - PHQ-9 Billing: Yes Source: Developed by Drs. Vinay Winkler, Kacey Faith, Berhane Bah and colleagues, with an educational radha from [employer]. Thrive Questionnaire Date Thrive assessed: 04/03/24 I am a: Patient What is your living situation today?: I choose not to answer this question Within the past 12 months, did the food you bought not last and you didn't have the money to get more?: I choose not to answer this question Within the past 12 months, did you worry whether your food would run out before you got money to buy more?: I choose not to answer this question Do you have trouble paying for medicines?: I choose not to answer this question Do you have trouble getting transportation to medical appointments?: I choose not to answer this question Do you have trouble paying your heating and electricity bill?: I choose not to answer this question Do you have trouble taking care of your child, family member or friend?: I choose not to answer this question Do you have trouble with day-to-day activities such as bathing, preparing meals, shopping, managing finances, etc.?: I choose not to answer this question Are you currently unemployed and looking for a job?: I choose not to answer this question Are you interested in more education?: I choose not to answer this question Please select the resources that you would like help with: None Currently or been in a relationship where the following occur: I choose not to answer THRIVE Score: 0 AUDIT C Alcohol Use Questionnaire (AUDIT-C) 1. How often do you have a drink containing alcohol?: Monthly or less 2. How many drinks containing alcohol do you have on a typical day when you are drinking?: 1 or 2 3. How often do you have six or more drinks on one occasion?: Never Total Score: 1 LISA-7 AMB Questionnaire LISA-7 Date LISA - 7 assessed: 04/03/24 Feeling nervous, anxious, or on edge: 0 = Not at all Not being able to stop or control worryin = Not at all Worrying too much about different things: 0 = Not at all Trouble relaxin = Not at all Being so restless that it is hard to sit still: 0 = Not at all Becoming easily annoyed or irritable: 0 = Not at all Feeling afraid as if something awful might happen: 0 = Not at all Total LISA-7 score (0-4 normal; 5-9 mild; 10-14 moderate; 15-21 severe): 0 Source: Developed by Drs. Vinay Winkler, Kacey Faith, Berhane Bah and colleagues, with an educational radha from [employer]. Review of Systems Const Denies poor appetite and Denies weakness Eyes Denies no additional complaints ENT Reports Normal hearing present, Denies dizziness, Denies nasal congestion, Denies tinnitus and Denies sore throat Card Denies chest pain, Denies syncope, Denies rapid heart rate and Denies dyspnea Resp Denies cough and Denies dyspnea GI Denies change in stool character, Reports constipation, Denies diarrhea, Denies nausea and Denies vomiting Denies urinary frequency, Denies difficulty voiding and Denies dysuria Neuro Reports Normal hearing present, Denies confusion, Denies dizziness, Denies syncope and Denies weakness Psych Denies confusion Physical exam (Primary Care) Vital Signs: Last Vital Signs Pulse 72 04/03/24 12:30 BP 122/72 04/03/24 12:30 Pulse Ox 99 04/03/24 12:30 Oxygen Delivery Method Room Air 04/03/24 12:30 BMI result Body Mass Index 31.4 Tobacco/Smoking Status: Tobacco use Status Tobacco use date assessed 05/16/23 04/03/24 12:35 Patient Tobacco Use Status Never used Tobacco 04/03/24 12:49 Tobacco use type Cigarette 04/03/24 12:49 e-Cigarette/Vaping Use Never Used 04/03/24 12:49 PHQ-9: PHQ-9 Score PHQ-9: Total score 0 04/03/24 12:41 Depression Screening Interpretation: Negative Thrive Assessment: Date of Thrive Assessment Date Thrive assessed 04/03/24 04/03/24 12:35 Currently or been in a relationship where the following occur: I choose not to answer Const General: No confusion Orientation/consciousness: No confusion HENMT Head: Yes normocephalic Ears: external ears normal and TM's normal bilaterally Face and sinus: Yes normal facial exam Mouth: moist mucous membranes Throat: Yes tonsils normal Eyes Conjunctivae: conjunctivae normal Pupils: Equal, round and reactive pupils present and Pupil accommodation reflex normal Direct Ophthalmoscopy: normal light reflex Neck Neck: No lymphadenopathy Thyroid: Thyroid normal Chest Chest palpation & inspection: normal inspection of the chest Resp Effort & Inspection: normal respiratory effort and no audible wheezes Auscultation: clear to auscultation bilaterally, no crackles, no wheezes and lung sounds not diminished Cardio Rate: regular rate Rhythm: regular rhythm Peripheral pulses: radial pulses present and dorsalis pedis present GI Palpation (GI): no masses Auscultation: normal bowel sounds and normoactive bowel sounds Rectal Exam - Female: deferred Skin General skin exam: no rashes or lesions noted Rashes: no rashes Neuro General: No confusion Cranial nerves: Yes Equal, round and reactive pupils present and Yes Normal hearing present Cognition (Neuro): normal cognition Gait exam (Neuro): Normal gait present Motor exam (neuro): 5/5 motor strength present throughout Deep tendon reflexes (DTR's): Right brachioradialis reflex intensity grade: 2+, Left brachioradialis reflex intensity grade: 2+, Right patellar reflex intensity grade: 2+ and Left patellar reflex intensity grade: 2+ Extrem General: No edema Coding Level of Care Code Est Pt Prev Care 40-64y(23245) Diagnoses Annual physical exam Z00.00 Status post laparoscopic sleeve gastrectomy Z98.84 Fatty liver K76.0 Hypercholesterolemia E78.00 Mild intermittent asthma without complication J45.20 Asthma complication type: uncomplicated Asthma persistence: intermittent Asthma severity: mild Obesity (BMI 30-39.9) E66.9 Atypical lobular hyperplasia (ALH) of breast N60.99 Eczema of both external ears H60.543 Laterality: bilateral Additional Codes PHQ-9 - 74592 - PHQ-9 Billing: Yes ([id number]) Assessment & Plan Assessment & Plan (1) Annual physical exam: Code(s): Z00.00 - Encounter for general adult medical examination without abnormal findings Category: Medical Plan: Patient is advised to eat healthy, keep well hydrated, keep active and have adequate sleep. Continue to follow (2) Status post laparoscopic sleeve gastrectomy: Comment: August 2017 Code(s): Z98.84 - Bariatric surgery status Category: Surgical Plan: Continue to follow-up with bariatric surgeon (3) Fatty liver: Code(s): K76.0 - Fatty (change of) liver, not elsewhere classified Category: Medical Plan: Low-fat diet (4) Hypercholesterolemia: Code(s): E78.00 - Pure hypercholesterolemia, unspecified Category: Medical Plan: Avoid fried foods, chicken skin, eggs, butter margarine, pastries and meat. Be it pork or beef they have a lot of cholesterol LDL goal of less than 130 and triglyceride of less than 150. (5) Asthma: Comment: PULMONARY FUNCTION TEST SHOWED PATTERN OF MILD BRONCHIAL ASTHMA, WITH GOOD RESPONSE TO BD .THERAPY EXPLAINED ABOUT THIS IN DETAIL. TX: BASICALLY WHAT SHE NEEDS IS ALBUTEROL HFA P.R.N.. SHE HAS BEEN USING SYMBICORT 80-4.52 PUFFS B.I.D. BUT I TOLD HER TO USE IT ONLY NEEDED. ( IF ASTHMA ATTACKS BECOME MORE FREQUENT) I REVIEWED THE REPORT OF PULMONARY FUNCTION TEST WITH HER. AND SHE UNDERSTANDS WELL Code(s): J45.909 - Unspecified asthma, uncomplicated Category: Medical Qualifiers: Asthma complication type: uncomplicated Asthma persistence: intermittent Asthma severity: mild Qualified Code(s): J45.20 - Mild intermittent asthma, uncomplicated Plan: Continue with albuterol inhaler as needed on Pulmicort for controller and rinse mouth after using (6) Obesity (BMI 30-39.9): Code(s): E66.9 - Obesity, unspecified Category: Medical Plan: Diet and exercise (7) Atypical lobular hyperplasia (ALH) of breast: Comment: Mammogram December 2022 Code(s): N60.99 - Unspecified benign mammary dysplasia of unspecified breast Category: Medical Plan: Patient is reminded about mammogram (8) Eczema of external ear: Code(s): H60.549 - Acute eczematoid otitis externa, unspecified ear Category: Medical Qualifiers: Laterality: bilateral Qualified Code(s): H60.543 - Acute eczematoid otitis externa, bilateral Plan: Patient was prescribed steroid cream this use it for no more than 14 days. Plan - Labs: - FSH: 15.9 (mid-cycle) - Cholesterol: 132 mg/dL - Triglycerides: 208 mg/dL - Fasting blood glucose: 101 mg/dL - Diagnostic tests: Awaiting gynecological ultrasound results - Continue current medications for asthma and GERD management - Monitor blood glucose and cholesterol levels; dietary modifications emphasizing reduction in sugar and fats - Apply steroid cream for symptomatic relief of eczema - Await results of rescheduled mammogram and gynecological ultrasound - Schedule follow-up for general check up in 6 months, with new blood work to reassess lipid profile Today we discussed the outcomes of the patient's blood work from October indicating borderline high cholesterol and triglyceride levels, emphasizing dietary changes and continued monitoring. We reinforced the importance of managing asthma and GERD with current medication regimens. We discussed the significance of non-menopausal FSH levels and potential implications for the reported postmenopausal bleeding. We reviewed family history and implications for cancer screenings. We emphasized the transition to oral consumption of marijuana to reduce cardiovascular risk. Additionally, the patient was advised to adhere to health maintenance measures including upcoming mammogram and ultrasound evaluations. - Use steroid cream as prescribed for dermatological issues. - Maintain a balanced diet with reduced sugar and fat intake to manage cholesterol and triglycerides. - Follow medication regimen for asthma and GERD. - Adhere to scheduled rescheduled mammogram in April 2024 and monitor results from pending ultrasound. - Drink adequate water intake, aiming for 6 to 8 glasses daily. - Maintain physical activity and report any significant changes in symptoms or health status. Orders: Orders Complete Blood Count Auto Diff 6 Months E78.00 - Pure hypercholesterolemia, unspecified Comprehensive Met. Panel 6 Months E78.00 - Pure hypercholesterolemia, unspecified Free T4 (Free Thyroxine) 6 Months E78.00 - Pure hypercholesterolemia, unspecified Thyroid Stimulating Hormone 6 Months E78.00 - Pure hypercholesterolemia, unspecified Hemoglobin A1c 6 Months E78.00 - Pure hypercholesterolemia, unspecified Vitamin B12 and Folate 6 Months E78.00 - Pure hypercholesterolemia, unspecified Vitamin D 25-OH Total 6 Months E78.00 - Pure hypercholesterolemia, unspecified Lipid Panel 6 Months E78.00 - Pure hypercholesterolemia, unspecified Vitamin A Today E78.00 - Pure hypercholesterolemia, unspecified Medications: Changed From triamcinolone acetonide 0.5% 1 appl topical BID 45 grams 0RF L25.9 - Unspecified contact dermatitis, unspecified cause To triamcinolone acetonide 0.5% ears and elbow 1 appl topical BID L25.9 - Unspecified contact dermatitis, unspecified cause
== END 2024-04-03 13:05 | disposition home or self-care (01) ==
PROVIDERS: PCP Internal Medicine; Visit Provider Internal Medicine
DX: Z00.00 Encounter for general adult medical examination without abnormal findings (principal); Z98.84 Bariatric surgery status; E66.9 Obesity, unspecified; Z68.31 Body mass index [BMI] 31.0-31.9, adult; K76.0 Fatty (change of) liver, not elsewhere classified; E78.00 Pure hypercholesterolemia, unspecified; J45.20 Mild intermittent asthma, uncomplicated; H60.543 Acute eczematoid otitis externa, bilateral

== ENCOUNTER → 2024-04-03 12:27 | Outpatient (BNVA) | payer OTHER, SELFPAY | PROVIDERS: PCP Internal Medicine; Visit Provider Internal Medicine | DX: Z00.00 Encounter for general adult medical examination without abnormal findings (principal); K76.0 Fatty (change of) liver, not elsewhere classified; E78.00 Pure hypercholesterolemia, unspecified; J45.20 Mild intermittent asthma, uncomplicated; E66.9 Obesity, unspecified; N60.99 Unspecified benign mammary dysplasia of unspecified breast; H60.543 Acute eczematoid otitis externa, bilateral; Z98.84 Bariatric surgery status | CPT/HCPCS: 96127 ==

== ENCOUNTER 2024-05-15 13:51 | Outpatient (AMB) | payer OTHER, SELFPAY ==
--- NOTE | 2024-05-15 13:57 | MHC.PC.OV ---
Vital Signs 05/15/24 14:01 Height 5 ft 4 in Weight 175 lb 6 oz BMI 30.1 BP 110/74 Blood Pressure Location Lt brachial Position Sitting Pulse 91 Pulse Source Pulse Oximeter Temp 97.1 F Temp Source Skin Pulse Oximetry (%) 98 Oxygen Delivery Method Room Air Intake Visit Reasons: 3M Follow Up Intake Note: Patient is here to follow up on Asthma, Hypertriglyceridemia, GERD. Mental Health Aides Teacher Required: No Weed Sprayer: Not Required per policy Accompanied by: Self / Same As Patient Allergies beclomethasone [From QVAR] Allergy (Severe, Verified 05/15/24 14:00) ANAPHYLAXIS,CHEST TIGHTNESS cyclobenzaprine Adverse Reaction (Intermediate, Verified 05/15/24 14:00) restless leg Tobacco use date assessed: 05/16/23 Dental Screening Dental Screen Date: 05/15/24 Did you have a dental visit in the last 12 months?: No Did you have a dental problem in the last 6 months where you did not have access to dental care?: No Was dental information given to patient?: No HPI 3M Follow Up HPI Details The patient is a 53-year-old female presenting with multiple ongoing medical concerns. She has a history of atypical lobular hyperplasia, noted during her last mammogram in December 2022. She was due for a follow-up mammogram, initially scheduled for April, but it required rescheduling due to changes at the radiology center. Additionally, cervical dysplasia was previously identified, warranting an annual Pap smear. The patient reported visiting her contract implementation analyst recently and has scheduled a follow-up appointment for further evaluation, pending test results from tests conducted over a month ago. The patient also has concerns regarding elevated cholesterol levels identified in October, with recent weight loss anticipated to improve these numbers. Further metabolic concerns include slightly elevated fasting blood glucose levels and Type 2 Diabetes risk, necessitating ongoing monitoring. Medication concerns include current use of inhalers for obstructive sleep apnea, semaglutide for weight management, and tamoxifen for menopausal symptoms, with bothersome side effects such as nausea and reflux. An increased semaglutide dose led to nausea and poor oral intake, warranting dose adjustment. The patient's Vitamin D levels require monitoring due to associated fatigue concerns. The patient also noted occasional ankle edema, experienced particularly in one leg, which has been painful at times. While the swelling is not notable, it raises suspicion of possible trauma or strain. There were no mentions of visual impairment concerns related to the prescription or bowel movement irregularities. [facility] Medical History (Updated 04/03/24 @ 17:04 by Mayo Garcia MD) Asthmatic bronchitis Cholecystitis, acute with cholelithiasis Asthma Cough Asthma Chest pain Neck pain Intercostal muscle pain Otitis externa Colon cancer screening Overweight (BMI 25.0-29.9) Wound abscess Cellulitis of ear Menorrhagia Anemia Uterine fibroid Fatty liver Vitamin D deficiency GERD (gastroesophageal reflux disease) Restless leg syndrome Atypical hyperplasia of right breast Surgical History Hx of dilation and curettage History of endometrial ablation Status post laparoscopic sleeve gastrectomy History of appendectomy History of reduction mammoplasty Family History Maternal Aunt Heart attack Lung cancer Uterine cancer Maternal Grandmother Lung cancer Maternal Uncle Lung cancer Social History Housing: House Alcohol intake: current Alcohol intake frequency: does not drink Alcohol type: wine Comment: once Q 3 months 1-2 glasses Patient Tobacco Use Status: Never used Tobacco Tobacco use type: Cigarette Years Smoked: marijuana e-Cigarette/Vaping Use: Never Used Second Hand Smoke Exposure: No Substance Use Type: Marijuana service: No Current occupational status: employed Cognitive needs: No Hearing needs: No Vision needs: Yes (glasses) Questionnaire PHQ-9 Over the last 2 weeks, how often have you been bothered by any of the following problems? 1. Little interest or pleasure in doing things: not at all 2. Feeling down, depressed, or hopeless: not at all 3. Trouble falling or staying asleep, or sleeping too much: not at all 4. Feeling tired or having little energy: not at all 5. Poor appetite or overeating: not at all 6. Feeling bad about yourself - or that you are a failure or have let yourself or your family down: not at all 7. Trouble concentrating on things, such as reading the newspaper or watching television: not at all 8. Moving or speaking so slowly that other people could have noticed. Or the opposite - being so fidgety or restless that you have been moving around a lot more than usual: not at all 9. Thoughts that you would be better off or of hurting yourself in some way: not at all Total score: 0 Depression Screening Interpretation: Negative Depression Screening Done: Yes Source: Developed by Drs. Vinay Winkler, Berhane Talbert and colleagues, with an educational radha from [employer]. Thrive Questionnaire Date Thrive assessed: 05/15/24 AUDIT C Alcohol Use Questionnaire (AUDIT-C) 1. How often do you have a drink containing alcohol?: Monthly or less 2. How many drinks containing alcohol do you have on a typical day when you are drinking?: 1 or 2 Total Score: 1 LISA-7 AMB Questionnaire LISA-7 Date LISA - 7 assessed: 05/15/24 Feeling nervous, anxious, or on edge: 0 = Not at all Not being able to stop or control worryin = Not at all Worrying too much about different things: 0 = Not at all Trouble relaxin = Not at all Being so restless that it is hard to sit still: 0 = Not at all Becoming easily annoyed or irritable: 0 = Not at all Feeling afraid as if something awful might happen: 0 = Not at all Total LISA-7 score (0-4 normal; 5-9 mild; 10-14 moderate; 15-21 severe): 0 Source: Developed by Drs. Vinay Winkler, Kacey Faith, Berhane Bah and colleagues, with an educational radha from [employer]. Physical exam (Primary Care) Vital Signs: Last Vital Signs Temp 97.1 F 05/15/24 14:01 Pulse 91 05/15/24 14:01 BP 110/74 05/15/24 14:01 Pulse Ox 98 05/15/24 14:01 Oxygen Delivery Method Room Air 05/15/24 14:01 BMI result Body Mass Index 30.1 Tobacco/Smoking Status: Tobacco use Status Tobacco use date assessed 05/16/23 05/15/24 14:06 Patient Tobacco Use Status Never used Tobacco 05/15/24 14:06 Tobacco use type Cigarette 05/15/24 14:06 e-Cigarette/Vaping Use Never Used 05/15/24 14:06 PHQ-9: PHQ-9 Score PHQ-9: Total score 0 05/15/24 14:37 Depression Screening Interpretation: Negative Thrive Assessment: Date of Thrive Assessment Date Thrive assessed 05/15/24 05/15/24 14:06 Const General: alert; No acute distress Eyes Conjunctivae: conjunctivae normal Resp Auscultation: clear to auscultation bilaterally Cardio Rate: regular rate Rhythm: regular rhythm GI Inspection: Yes normal to inspection Extrem General: Yes normal to inspection and No edema Coding Level of Care Code Est Pt Level 4 (18641) Diagnoses Hypercholesterolemia E78.00 ASCUS with positive high risk HPV cervical R87.610; R87.810 Atypical lobular hyperplasia (ALH) of breast N60.99 Obesity (BMI 30-39.9) E66.9 Mild intermittent asthma without complication J45.20 Asthma complication type: uncomplicated Asthma persistence: intermittent Asthma severity: mild Gastroesophageal reflux disease without esophagitis K21.9 Esophagitis presence: without esophagitis Hypertriglyceridemia E78.1 Status post laparoscopic sleeve gastrectomy Z98.84 Assessment & Plan Assessment & Plan (1) Hypercholesterolemia: Code(s): E78.00 - Pure hypercholesterolemia, unspecified Category: Medical (2) ASCUS with positive high risk HPV cervical: Code(s): R87.610 - Atypical squamous cells of undetermined significance on cytologic smear of cervix (ASC-US); R87.810 - Cervical high risk human papillomavirus (HPV) DNA test positive Category: Medical (3) Atypical lobular hyperplasia (ALH) of breast: Comment: Mammogram December 2022 Code(s): N60.99 - Unspecified benign mammary dysplasia of unspecified breast Category: Medical (4) Obesity (BMI 30-39.9): Code(s): E66.9 - Obesity, unspecified Category: Medical (5) Asthma: Comment: PULMONARY FUNCTION TEST SHOWED PATTERN OF MILD BRONCHIAL ASTHMA, WITH GOOD RESPONSE TO BD .THERAPY EXPLAINED ABOUT THIS IN DETAIL. TX: BASICALLY WHAT SHE NEEDS IS ALBUTEROL HFA P.R.N.. SHE HAS BEEN USING SYMBICORT 80-4.52 PUFFS B.I.D. BUT I TOLD HER TO USE IT ONLY NEEDED. ( IF ASTHMA ATTACKS BECOME MORE FREQUENT) I REVIEWED THE REPORT OF PULMONARY FUNCTION TEST WITH HER. AND SHE UNDERSTANDS WELL Code(s): J45.909 - Unspecified asthma, uncomplicated Category: Medical Qualifiers: Asthma complication type: uncomplicated Asthma persistence: intermittent Asthma severity: mild Qualified Code(s): J45.20 - Mild intermittent asthma, uncomplicated (6) GERD (gastroesophageal reflux disease): Comment: Upper GI series February 2006 Code(s): K21.9 - Gastro-esophageal reflux disease without esophagitis Category: Medical Qualifiers: Esophagitis presence: without esophagitis Qualified Code(s): K21.9 - Gastro-esophageal reflux disease without esophagitis (7) Hypertriglyceridemia: Code(s): E78.1 - Pure hyperglyceridemia Category: Medical (8) Status post laparoscopic sleeve gastrectomy: Comment: August 2017 Code(s): Z98.84 - Bariatric surgery status Category: Surgical Plan - Arrange for rescheduling and completion of a follow-up mammogram to monitor atypical lobular hyperplasia. - Ensure annual Pap smear is completed, with follow-up with contract implementation analyst for ASCUS evaluation. - Obtain a lipid panel to assess the current status post-weight loss since October observation of hyperlipidemia. - Monitor blood glucose levels and implement lifestyle adjustments to control fasting glucose levels. - Adjust semaglutide dosing to alleviate nausea; consider medication review for appropriate dosing. - Prescribe medication for reflux management, coordinating it with other medications. - Continue tamoxifen therapy, monitoring hot flash severity and discussing any alternative treatment options as needed. - Investigate ankle edema further to rule out etiologies specific to possible trauma, and monitor for persistent swelling or pain. - Conduct further testing for Vitamin D deficiency as indicated. - Reinforce the importance of flu, COVID-19, and RSV vaccinations, along with preventative health measures for virus protection. Orders: Orders Hemoglobin A1c Today E78.1 - Pure hyperglyceridemia Comprehensive Met. Panel Today E78.1 - Pure hyperglyceridemia Medications: New semaglutide 1 mg (0.75 mL) subcut QWEEK 3 mL 0RF E66.9 - Obesity, unspecified Refilled zolpidem (Ambien) 5 mg PO BEDTIME PRN 20 tabs 2RF sleep G47.00 - Insomnia, unspecified budesonide 90 mcg/actuation (Pulmicort Flexhaler) 1 inh inhalation BID 1 ea 2RF 30 days albuterol sulfate 90 mcg/actuation 2 puffs inhalation Q6H PRN 8.5 grams 0RF bronchospasm 90 days J45.909 - Unspecified asthma, uncomplicated
[2024-05-15 14:01] VITALS: BP 110/74; PULSE 91; TEMP 36.2; O2SAT 98; BMI 30.1
== END 2024-05-15 14:48 | disposition home or self-care (01) ==
PROVIDERS: PCP Internal Medicine; Visit Provider Internal Medicine
DX: E78.00 Pure hypercholesterolemia, unspecified (principal); R87.610 Atypical squamous cells of undetermined significance on cytologic smear of cervix (ASC-US); E66.9 Obesity, unspecified; Z68.30 Body mass index [BMI] 30.0-30.9, adult; N60.99 Unspecified benign mammary dysplasia of unspecified breast; R87.810 Cervical high risk human papillomavirus (HPV) DNA test positive; J45.20 Mild intermittent asthma, uncomplicated; K21.9 Gastro-esophageal reflux disease without esophagitis; E78.1 Pure hyperglyceridemia; Z98.84 Bariatric surgery status

== ENCOUNTER → 2024-05-15 13:51 | Outpatient (BNVA) | payer OTHER, SELFPAY | PROVIDERS: PCP Internal Medicine; Visit Provider Internal Medicine ==

== ENCOUNTER 2024-05-21 11:23 | Outpatient (AMB) | payer OTHER, SELFPAY ==
--- NOTE | 2024-05-21 11:27 | MHC.OFFVIS ---
Vital Signs 05/21/24 11:36 Height 5 ft 4 in Weight 175 lb BMI 30.0 BP 100/68 Intake Visit Reasons: US Follow up Business Analyst Intern: Business Analyst Intern Present (Jaye) Allergies beclomethasone [From QVAR] Allergy (Severe, Verified 05/21/24 11:32) ANAPHYLAXIS,CHEST TIGHTNESS cyclobenzaprine Adverse Reaction (Intermediate, Verified 05/21/24 11:32) restless leg HPI Comments Details: Patient is here today for a follow up pelvic ultrasound in an EMB procedure. She defers EMB procedure as she is not feeling well due to taking her dose of Semaglutide. She reports her last episode of bleeding was in 03/18/2024, prior bleeding episode was December 2022. She admits to hot flashes. Currently taking tamoxifen. [facility] Medical History (Updated 05/21/24 @ 12:24 by Jaye Ivory CNM) Use of tamoxifen (Nolvadex) Asthmatic bronchitis Cholecystitis, acute with cholelithiasis Asthma Cough Asthma Chest pain Neck pain Intercostal muscle pain Otitis externa Colon cancer screening Overweight (BMI 25.0-29.9) Wound abscess Cellulitis of ear Menorrhagia Anemia Uterine fibroid Fatty liver Vitamin D deficiency GERD (gastroesophageal reflux disease) Restless leg syndrome Atypical hyperplasia of right breast Surgical History Hx of dilation and curettage History of endometrial ablation Status post laparoscopic sleeve gastrectomy History of appendectomy History of reduction mammoplasty Family History Maternal Aunt Heart attack Lung cancer Uterine cancer Maternal Grandmother Lung cancer Maternal Uncle Lung cancer Social History Housing: House Alcohol intake: current Alcohol intake frequency: does not drink Alcohol type: wine Comment: once Q 3 months 1-2 glasses Patient Tobacco Use Status: Never used Tobacco Tobacco use type: Cigarette Years Smoked: marijuana e-Cigarette/Vaping Use: Never Used Second Hand Smoke Exposure: No Substance Use Type: Marijuana service: No Current occupational status: employed Cognitive needs: No Hearing needs: No Vision needs: Yes (glasses) Results Reviewed Results Reviewed: [address] [address] Ultrasound Report Signed Patient: Shruti Benson MR#: [id number] : 1970 Acct:[id number] Age/Sex: 53 / F ADM Date: 03/30/24 Loc: HO.US Attending Dr: Jaye Ivory CNM Ordering Physician: Jaye Ivory CNM Date of Service: 03/30/24 Procedure(s): US pelvic and transvaginal Accession Number(s): [id number] cc: Jaye Ivory CNM; Po,Mayo Hand MD~ EXAMINATION: US PELVIS CLINICAL INFORMATION: Postmenopausal bleeding. 53-year-old female. History of D&C and endometrial ablation in 2011. COMPARISON: Numerous priors, most recently 06/08/2022. 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 TECHNIQUE: Ultrasound of the pelvis is performed using both transabdominal and transvaginal transducers along with Doppler. Transvaginal imaging is performed due to inadequate visualization transabdominally. FINDINGS: Uterus: The uterus is anteverted and anteflexed, and measures 7.5 x 3.3 x 4.2 cm. The cervix demonstrates nabothian cysts, but is otherwise sonographically normal. The double wall endometrial thickness is 6 mm. There are subtle tiny subendometrial cystic foci present, nonspecific. The uterus is smooth in contour and has diffusely heterogeneous myometrial echogenicity. 2 previously seen fibroids are not visible on today's examination. Adnexa: Both ovaries are visualized. There is normal color flow to the adnexa. There is no ovarian torsion. There is no pelvic ascites or fluid collection. There are no adnexal masses present. Right ovary measures 2.0 x 1.2 x 1.5 cm. Volume = 1.9 mL. Normal sonographic appearance. Left ovary measures 1.9 x 0.8 x 1.1 cm. Volume = 0.9 mL. Normal sonographic appearance. US/US pelvic and transvaginal IMPRESSION: 1. Endometrial thickness of 6 mm with a few tiny subendometrial cystic foci present. Differential includes hyperplasia, and adenomyosis. 2. Heterogeneous myometrial echotexture, nonspecific. The 2 previously seen fibroids are not definitively visualized on today's exam. No new fibroids seen. 3. Normal ovaries and adnexal structures. No free fluid. Electronically signed by: David Malave MD 05/15/2024 03:44 PM EST Dictated By: David Malave MD Signed By: <Electronically signed by David Malave MD in OV> 05/15/24 1544 DD/ 1437 TD/TT: 03/30/24 1521 Berry Grower: Assessment & Plan Assessment & Plan (1) Use of tamoxifen (Nolvadex): Code(s): Z79.810 - custodial (current) use of selective estrogen receptor modulators (SERMs) Category: Medical Plan: Tamoxifen use discussed-relative risks for endometrial cancer with tamoxifen use. (2) Postmenopausal bleeding: Code(s): N95.0 - Postmenopausal bleeding Category: Medical Plan: Reviewed pelvic ultrasound. Strongly recommended to an EMB procedure, she declines and due to the discomfort and prefers to have hysteroscopy. Consult appointment to be made with Dr. Goodwin to discuss results and plan hysteroscopy. (3) Vaginal dryness: Code(s): N89.8 - Other specified noninflammatory disorders of vagina Plan Discussed: Vaginal dryness and use of products available online or in store for purchase without a prescription. Moisturizer: Replens-inserted vaginally, used twice a week at bedtime, it can take up to 12 weeks to see the results). Lubricants: may be used additionally if needed such as (Astroglide, Replens, K-Y Jelly). Website visual aid of products reviewed today. Scheduled annual exam appointment. The patient expressed understanding and agreement with the plan of care. All of her questions and concerns were addressed to the best of my ability. This note is constructed using voice recognition software. While every effort has been made to ensure accuracy, food order expediter errors may have been included. Orders: Orders Follicle Stimulating Hormone Today R23.2 - [place] Coding Level of Care Code Est Pt Level 3 (73883) Diagnoses Use of tamoxifen (Nolvadex) Z79.810 Postmenopausal bleeding N95.0 Vaginal dryness N89.8
[2024-05-21 11:36] VITALS: BP 100/68
--- OUTSIDE RECORDS SUMMARY | 2024-05-21 13:46 | XMS_ITS | Clinical Summary ---
Author Organization [facility] Address [address] [place] [address] Care Team Providers Care Supervisor [employer] Name Role Phone Unavailable Primary Care Provider Unavailabl e Active Problems No known active problems Social History Tobacco Use Types Packs/Day Years Used Date Smoking Tobacco: Never Smokeless Tobacco: Never Sex and Gender Information Value Date Recorded Sex Assigned at Not on file Gender Identity Not on file Sexual Orientation Not on file Job Start Date Occupation Industry Not on file Not on file Not on file Plan of Treatment Health Maintenance Due Date Last Done Comments Hepatitis B Vaccines (1 of 3 - 3-dose series) 1970 Hepatitis C Screening 1970 COVID-19 Vaccine (#1) 04/29/1972 Depression Screening 1983 Preventative Health Evaluation 10/27/1989 DTap / Tdap / Td (1 - Tdap) 10/27/1990 Cervical Cancer Screening (P ap Smear) 10/27/1992 Colon Cancer Screening (Colonoscopy) 10/27/2016 Breast Cancer Screening (Mammogram) 10/27/2021 Shingrix-Zoster Vaccine (1 of 2) 10/27/2021 Influenza Vaccine (#1) 2023 Pneumococcal Vaccine Aged Out No long er eligible based on patient's age to complete this topic RSV Ped < 20 months Aged Out No longe r eligible based on patient's age to complete this topic
== END 2024-05-21 12:24 | disposition home or self-care (01) ==
LOC: HO.HWS 11:23
PROVIDERS: PCP Internal Medicine; Visit Provider Advanced Practice Midwife
DX: N95.0 Postmenopausal bleeding (principal); N89.8 Other specified noninflammatory disorders of vagina; Z79.810 Long term (current) use of selective estrogen receptor modulators (SERMs)
CPT/HCPCS: 99213

== ENCOUNTER 2024-07-27 09:52 | Outpatient (AMB) | payer OTHER, SELFPAY ==
--- NOTE | 2024-07-27 09:53 | MHC.OFFVIS ---
Intake Visit Reasons: Hysteroscopy Consult Truck Hopper Required: No Information Interpreted: non-clinical & clinical Clinical Dietetic Technician: Clinical Dietetic Technician Present (Velma/ Dee LLANOS) Accompanied by: Self / Same As Patient Allergies beclomethasone [From QVAR] Allergy (Severe, Verified 07/27/24 09:54) ANAPHYLAXIS,CHEST TIGHTNESS cyclobenzaprine Adverse Reaction (Intermediate, Verified 07/27/24 09:54) restless leg HPI Comments Details: Presenting referred from Jaye Ivory CNM regarding an episode of postmenopausal bleeding Pelvic ultrasound done in 04/21 showed the following: IMPRESSION: 1. Endometrial thickness of 6 mm with a few tiny subendometrial cystic foci present. Differential includes hyperplasia, and adenomyosis. 2. Heterogeneous myometrial echotexture, nonspecific. The 2 previously seen fibroids are not definitively visualized on today's exam. No new fibroids seen. 3. Normal ovaries and adnexal structures. No free fluid. Last co testing in 04/19 showed ASCUS HPV positive, colpo biopsy ECC in 05/21 was negative [facility] Medical History (Updated 07/27/24 @ 10:05 by Mike Goodwin MD) Use of tamoxifen (Nolvadex) Asthmatic bronchitis Cholecystitis, acute with cholelithiasis Asthma Cough Asthma Chest pain Neck pain Intercostal muscle pain Otitis externa Colon cancer screening Overweight (BMI 25.0-29.9) Wound abscess Cellulitis of ear Menorrhagia Anemia Uterine fibroid Fatty liver Vitamin D deficiency GERD (gastroesophageal reflux disease) Restless leg syndrome Atypical hyperplasia of right breast Surgical History Hx of dilation and curettage History of endometrial ablation Status post laparoscopic sleeve gastrectomy History of appendectomy History of reduction mammoplasty Family History Maternal Aunt Heart attack Lung cancer Uterine cancer Maternal Grandmother Lung cancer Maternal Uncle Lung cancer Social History Housing: House Alcohol intake: current Alcohol intake frequency: does not drink Alcohol type: wine Comment: once Q 3 months 1-2 glasses Patient Tobacco Use Status: Never used Tobacco Tobacco use type: Cigarette Years Smoked: marijuana e-Cigarette/Vaping Use: Never Used Second Hand Smoke Exposure: No Substance Use Type: Marijuana service: No Current occupational status: employed Cognitive needs: No Hearing needs: No Vision needs: Yes (glasses) Office Procedures Endometrial Biopsy Details: The patient was counseled regarding the indication and benefits of endometrial sampling to rule out endometrial pathology including not limited to endometrial hyperplasia or endometrial cancer and others; The alternatives (Either do nothing vs. hysteroscopy D&C) & the risks were discussed with the patient including but not limited: pain, uterine perforation, bleeding, infection, possible injury to bladder, bowel, ureter, possible need for blood transfusion with all its possible risks. The patient verbalized understanding all questions answered and signed consent. The patient was placed into the dorsal lithotomy position; a speculum was inserted in the vagina. Using aseptic technique for the procedure, the cervix was cleansed with Betadine. 10 cc of xylocaine were injected in the cervical stroma at 2, 4, 8 and 10:00 o'clock for paracervical block. The anterior lip of the cervix was grasped with a single tooth tenaculum. The uterus was sounded to 7 cm with a 4 mm Pipelle was used. Tissues samples were obtained and placed in formalin, in a patient labeled container and sent to the pathology department. At the end of the procedure, there was minimal bleeding noted The patient tolerated the procedure well and was discharged in good condition with the following instructions: Nothing in the vagina until the bleeding stops. No sex until the bleeding stops, to call if any of the following occurs: fever (>100.4), flu-like symptoms, abdominal pain, heavy bleeding, four smelling vaginal discharge. The patient was instructed to schedule a Follow up appointment in 2 weeks to discuss pathology results of the biopsy and treatment options. This note was generated with a voice recognition program. Some errors may have been overlooked during the review of this note. Sometimes these errors may affect the content or meaning of a given sentence. [id number] Biopsy Assessment & Plan Assessment & Plan (1) Postmenopausal bleeding: Comment: On tamoxifen History of endometrial ablation Code(s): N95.0 - Postmenopausal bleeding Category: Medical Plan: Discussed with the patient the differential diagnosis of post menopausal bleeding with normal pelvic exam including but not limited to, endometrial hyperplasia, cancer, polyps and other causes; co testing done, Discussed with the patient the pelvic ultrasound findings, the endometrial stripe thickenss measured by ultrasound was more than 4mm. The negative predictive value, positive predictive value, Sensitivity, specificity of using ultrasound measurement of endometrial stripe to detecting endometrial pathology including hyperplasia , polyp or cancer were discussed with the patient. Recommended to the patient that the next step is an endometrial sampling via hysteroscopy D&C possible polypectomy versus endometrial biopsy to r/o endometrial pathology including hyperplasia or cancer. All the pros and cons risks and benefits of each approach were discussed with the patient, endometrial biopsy being less invasive, office procedure with less sensitivity and inability diagnose a polyp and removal versus hysteroscopy done under anesthesia more invasive more sensitive to endometrial cancer and possibility of diagnosing and endometrial polyp with the possibility of polypectomy. All questions were answered pt verbalized understanding and decided to proceed with endometrial biopsy with paracervical block, EMB with paracervical block done, see procedure note This note was generated with a voice recognition program. Some errors may have been overlooked during the review of this note. Sometimes these errors may affect the content or meaning of a given sentence. Orders: Orders AMB Endometrial Biopsy Today N95.0 - Postmenopausal bleeding Coding Level of Care Code Est Pt Level 3 (96546) Procedure Only Diagnoses Postmenopausal bleeding N95.0 CPT Codes Endometrial Biopsy - CPT: 06202-Utglykmfxky Biopsy ([id number])
== END 2024-07-27 10:35 | disposition home or self-care (01) ==
LOC: HO.HWS 09:52
PROVIDERS: PCP Internal Medicine; Visit Provider Obstetrics & Gynecology
DX: N95.0 Postmenopausal bleeding (principal)
CPT/HCPCS: 58100; 99213

== ENCOUNTER 2024-07-27 09:52 | Outpatient (REF) | payer OTHER, SELFPAY ==
--- OUTSIDE RECORDS SUMMARY | 2024-07-27 11:46 | XMS_ITS | Clinical Summary ---
Author Organization [facility] Address [address] [place] [address] Care Team Providers Care Tearer Press Clipping Name Role Phone Unavailable Primary Care Provider [...]
== END 2024-07-27 09:53 | disposition home or self-care (01) ==
LOC: HO.LNP 09:52
PROVIDERS: PCP Internal Medicine; Visit Provider Obstetrics & Gynecology
DX: N95.0 Postmenopausal bleeding (principal)
CPT/HCPCS: 58100; 88305

== ENCOUNTER 2024-08-13 07:51 | Outpatient (AMB) | payer OTHER, SELFPAY ==
--- OUTSIDE RECORDS SUMMARY | 2024-08-13 07:52 | XMS_ITS | Clinical Summary ---
Author Organization [facility] Address [address] [place] [address] Care Team Providers Care Supervisor Pigment Making Name Role Phone Unavailable Primary Care Provider [...]
--- NOTE | 2024-08-13 08:03 | MHC.OFFVIS ---
Intake Visit Reasons: EMB results Allergies beclomethasone [From QVAR] Allergy (Severe, Verified 07/27/24 09:54) ANAPHYLAXIS,CHEST TIGHTNESS cyclobenzaprine Adverse Reaction (Intermediate, Verified 07/27/24 09:54) restless leg HPI Comments Details: The patient scheduled a telehealth visit after endometrial biopsy. The patient has no complaints, no vaginal bleeding, no feverishness chills or abdominal pain. The endometrial biopsy pathology report showed the following: Endometrium, biopsy: Predominantly blood and few superficial strips of inactive endometrium (see comment). COMMENT: The quantity of tissue present may not be electronics parts sales representative of the endometrium [facility] Medical History Use of tamoxifen (Nolvadex) Asthmatic bronchitis Cholecystitis, acute with cholelithiasis Asthma Cough Asthma Chest pain Neck pain Intercostal muscle pain Otitis externa Colon cancer screening Overweight (BMI 25.0-29.9) Wound abscess Cellulitis of ear Menorrhagia Anemia Uterine fibroid Fatty liver Vitamin D deficiency GERD (gastroesophageal reflux disease) Restless leg syndrome Atypical hyperplasia of right breast Surgical History Hx of dilation and curettage History of endometrial ablation Status post laparoscopic sleeve gastrectomy History of appendectomy History of reduction mammoplasty Family History Maternal Aunt Heart attack Lung cancer Uterine cancer Maternal Grandmother Lung cancer Maternal Uncle Lung cancer Social History Housing: House Alcohol intake: current Alcohol intake frequency: does not drink Alcohol type: wine Comment: once Q 3 months 1-2 glasses Patient Tobacco Use Status: Never used Tobacco Tobacco use type: Cigarette Years Smoked: marijuana e-Cigarette/Vaping Use: Never Used Second Hand Smoke Exposure: No Substance Use Type: Marijuana service: No Current occupational status: employed Cognitive needs: No Hearing needs: No Vision needs: Yes (glasses) Review of Systems Const All systems reviewed & are unremarkable except as noted in HPI and below Reports as per HPI and Reports no additional complaints GI Reports no additional complaints Reports no additional complaints Telehealth Telehealth Telehealth Platform: Telephone Location of provider rendering services: practice address Location of patient: address on file Patient Identification confirmed using: Name, : Yes Telehealth method: video Patient verbally consented to treatment: Yes Patient verbally consented to billing insurance company: Yes Patient informed of any privacy concerns related to visit: Yes Minutes spent on Phone/Video with Pt.: 4 Assessment & Plan Assessment & Plan (1) Postmenopausal bleeding: Comment: On tamoxifen History of endometrial ablation Code(s): N95.0 - Postmenopausal bleeding Category: Medical Plan: Discussed with the patient the pathology of the endometrial biopsy, the quantity of tissue present may not be electronics parts sales representative of the endometrium. Recommended to the patient that the next step should be either repeat endometrial biopsy in the office or a hysteroscopy and a D&C to rule out endometrial pathology including but not limited to: endometrial hyperplasia cancer or polyp and others. All the pros and cons and risks and benefits of the procedure were discussed with the patient. The patient the verbalized understanding and decided to proceed with hysteroscopy D&C possible polypectomy/myomectomy. Instructions given the patient to schedule a preop visit within 2 weeks. I spent a total of 20 minutes reviewing the chart, talking to the patient via video and documenting in the medical record. Coding Level of Care Code Tele Est Pt Level 3 (54946) Diagnoses Postmenopausal bleeding N95.0
== END 2024-08-13 08:29 | disposition home or self-care (01) ==
LOC: HO.HWS 07:51
PROVIDERS: PCP Internal Medicine; Visit Provider Obstetrics & Gynecology
DX: N95.0 Postmenopausal bleeding (principal)
CPT/HCPCS: 99213

== ENCOUNTER → 2024-08-13 07:51 | Outpatient (BNVA) | payer OTHER, SELFPAY | PROVIDERS: PCP Internal Medicine; Visit Provider Obstetrics & Gynecology ==

== ENCOUNTER 2024-08-24 08:46 | Outpatient (AMB) | payer OTHER, SELFPAY ==
[2024-08-24 08:51] VITALS: BP 120/72
--- NOTE | 2024-08-24 08:51 | A.OFFVIS_ITS ---
Vital Signs 08/24/24 08:51 Height 5 ft 4 in Weight 175 lb BMI 30.0 BP 120/72 Intake Visit Reasons: pre op Police Superintendent Required: No Information Interpreted: non-clinical & clinical Instructional Design Technologist: Instructional Design Technologist Present Accompanied by: Self / Same As Patient Allergies beclomethasone [From QVAR] Allergy (Severe, Verified 08/24/24 08:52) ANAPHYLAXIS,CHEST TIGHTNESS cyclobenzaprine Adverse Reaction (Intermediate, Verified 08/24/24 08:52) restless leg Is last menstrual period known: Yes Last menstrual period: 02/25/20 Post menopausal: No Patient : No Do you need a note to return to daycare/school/sports/work: Yes (for surgery on saturday) HPI Comments Details: Presenting to discuss hysteroscopy D&C possible polypectomy/myomectomy [facility] Medical History Use of tamoxifen (Nolvadex) Asthmatic bronchitis Cholecystitis, acute with cholelithiasis Asthma Cough Asthma Chest pain Neck pain Intercostal muscle pain Otitis externa Colon cancer screening Overweight (BMI 25.0-29.9) Wound abscess Cellulitis of ear Menorrhagia Anemia Uterine fibroid Fatty liver Vitamin D deficiency GERD (gastroesophageal reflux disease) Restless leg syndrome Atypical hyperplasia of right breast Surgical History Hx of dilation and curettage History of endometrial ablation Status post laparoscopic sleeve gastrectomy History of appendectomy History of reduction mammoplasty Family History Maternal Aunt Heart attack Lung cancer Uterine cancer Maternal Grandmother Lung cancer Maternal Uncle Lung cancer Social History Housing: House Alcohol intake: current Alcohol intake frequency: does not drink Alcohol type: wine Comment: once Q 3 months 1-2 glasses Patient Tobacco Use Status: Never used Tobacco Tobacco use type: Cigarette Years Smoked: marijuana e-Cigarette/Vaping Use: Never Used Second Hand Smoke Exposure: No Substance Use Type: Marijuana service: No Current occupational status: employed Cognitive needs: No Hearing needs: No Vision needs: Yes (glasses) Female Reproductive History Menstrual Date of last menstrual period: 02/25/20 Total pregnancies: 2 Full term: 2 Review of Systems Card Reports as per HPI and Reports no additional complaints Resp Reports as per HPI and Reports no additional complaints GI Reports as per HPI and Reports no additional complaints Reports as per HPI Physical Exam Vital Signs: Last Vital Signs BP 120/72 08/24/24 08:51 BMI result Body Mass Index 30.0 Const General: cooperative, healthy appearing and comfortable Resp Effort & Inspection: normal respiratory effort Auscultation: clear to auscultation bilaterally Percussion: percussion normal Cardio Palpation: normal PMI Rate: regular rate Rhythm: regular rhythm Heart sounds: no murmurs and no rubs Peripheral pulses: Peripheral pulses 2+ throughout GI Inspection: Yes normal to inspection Palpation (GI): Soft to palpation, nontender, no guarding, not rigid and No hepatosplenomegaly present Percussion: Yes normal to percussion Auscultation: normal bowel sounds Rectal Exam - Female: deferred Assessment & Plan Assessment & Plan (1) Postmenopausal bleeding: Comment: On tamoxifen History of endometrial ablation EMB tissues may not be sales representative girls' apparel of the endometrium Code(s): N95.0 - Postmenopausal bleeding Category: Medical Plan: Discussed with the patient the results the EMB pathology, may not be sales representative girls' apparel of the endometrium, recommended next step as hysteroscopy D&C possible polypectomy/myomectomy. Discussed with the patient the procedure , all benefits and risks including but not limited to inability to complete the procedure , insufficient endometrial tissue for a complete evaluation of the endometrial cavity , bleeding, infection, possible need for blood transfusion with all its risk ( HIV,syphilis, Hepatitis, anaphylaxis shock, others..), injury to bladder, rectum, possible need for laparoscopy/laparotomy or hysterectomy. The patient verbalized understanding and signed the consent. Instructions given the patient to stay NPO after midnight the day prior to the procedure and to take only the specific medication (s) discussed the morning of the surgical procedure and to schedule a 2 week postoperative appointment Coding Level of Care Code Est Pt Level 3 (78087) Diagnoses Postmenopausal bleeding N95.0
--- OUTSIDE RECORDS SUMMARY | 2024-08-24 09:18 | XMS_ITS | Clinical Summary ---
Author Organization [facility] Address [address] [place] [address] Care Team Providers Care Handbag Framer Name Role Phone Unavailable Primary Care Provider [...]
== END 2024-08-24 09:03 | disposition home or self-care (01) ==
LOC: HO.HWS 08:47
PROVIDERS: PCP Internal Medicine; Visit Provider Obstetrics & Gynecology
DX: N95.0 Postmenopausal bleeding (principal)
CPT/HCPCS: 99213

== ENCOUNTER → 2024-08-24 08:46 | Outpatient (BNVA) | payer OTHER, SELFPAY | PROVIDERS: PCP Internal Medicine; Visit Provider Obstetrics & Gynecology ==

== ENCOUNTER 2024-08-28 06:57 | Day surgery (SDC) | payer OTHER, SELFPAY ==
--- OUTSIDE RECORDS SUMMARY | 2024-08-25 10:12 | XMS_ITS | Clinical Summary ---
Author Organization [facility] Address [address] [place] [address] Care Team Providers Care Product Safety Test Engineer Name Role Phone Unavailable Primary Care Provider [...]
--- NOTE | 2024-08-26 10:56 | HO.ANESPROP2 ---
Documented by User: Dian Mendoza NP 08/26/24 10:57 HPI - Anesthesia Eval Consult details Narrative: 53yo F for ?D&C Hysteroscopy,possible myomectomy,possible polypectomy Anesthesia Pre-Procedure Meds Is the patient on any of the following meds?: GLP1/DPP4 PMFSH Active Problems Active Problems: All Active Problems Breast calcification, right (Acute) Use of tamoxifen (Nolvadex) (Acute) Eczema of external ear (Acute) Hypercholesterolemia (Acute) Cough (Acute) Stress incontinence (Acute) Blood pressure elevated without history of HTN (Acute) Uterine myoma (Acute) Postmenopausal bleeding (Acute) ASCUS with positive high risk HPV cervical (Acute) Hot flashes (Acute) Atypical lobular hyperplasia (ALH) of breast (Acute) Thyroid enlargement (Acute) Obesity (BMI 30-39.9) (Acute) Insomnia (Acute) Annual physical exam (Acute) Sprain of cervical neck (Acute) Eczema (Acute) Intercostal pain (Acute) Hidradenitis suppurativa (Acute) Contact dermatitis (Acute) Viral wart on finger (Acute) Annual physical exam (Acute) Colon cancer screening (Acute) Asthma (Acute) Chest pain (Acute) History of reduction mammoplasty (Acute) GERD (gastroesophageal reflux disease) (Acute) Hypertriglyceridemia (Acute) Fatty liver (Acute) Status post laparoscopic sleeve gastrectomy (Acute) Past Medical History Medical History (Updated 08/24/24 @ 08:54 by Mike Goodwin MD) Use of tamoxifen (Nolvadex) Asthmatic bronchitis Cholecystitis, acute with cholelithiasis Asthma Chest pain Asthma Neck pain Intercostal muscle pain Cough Otitis externa Colon cancer screening Overweight (BMI 25.0-29.9) Wound abscess Cellulitis of ear Menorrhagia Anemia Uterine fibroid Fatty liver Vitamin D deficiency GERD (gastroesophageal reflux disease) Restless leg syndrome Atypical hyperplasia of right breast Family History Family History Maternal Aunt Heart attack Lung cancer Uterine cancer Maternal Grandmother Lung cancer Maternal Uncle Lung cancer Family history of problems with anesthesia: No Surgical History Surgical History (Updated 08/28/24 @ 07:09 by Yareli Prince RN) Hx of cholecystectomy Hx of dilation and curettage History of endometrial ablation Status post laparoscopic sleeve gastrectomy History of appendectomy History of reduction mammoplasty History of Problems with Anesthesia: No Social History Social History Housing: House Alcohol intake: current Alcohol intake frequency: holidays/special occasions only Alcohol type: wine Comment: once Q 3 months 1-2 glasses Patient Tobacco Use Status: Never used Tobacco Tobacco use type: Cigarette Years Smoked: marijuana e-Cigarette/Vaping Use: Never Used Second Hand Smoke Exposure: No Use of substances other than those prescribed or required for medical reasons: Yes Substance Use Type: Marijuana Are you DNR?: No Advance Directives: No Advance Directives Information Provided: Yes Patient : No : No Poor oral hygiene: No service: No Current occupational status: employed Cognitive needs: No Hearing needs: No Vision needs: Yes (glasses) Meds Allergies Allergy/AdvReac Type Severity Reaction Status Date / Time beclomethasone [From QVAR] Allergy Severe ANAPHYLAXIS,CHEST Verified 08/24/24 08:52 TIGHTNESS cyclobenzaprine AdvReac Intermediate restless Verified 08/24/24 08:52 leg Home Medications ?Medication ?Instructions ?Recorded ?Confirmed ?Last Taken ?Type AGELESS LX 3 cap PO .QD 05/16/23 04/03/24 Unknown History BETTER Lungs PO .QD 2 a day 05/16/23 04/03/24 Unknown History multivitamin 1 tab PO DAILY 05/16/23 04/03/24 Unknown History tamoxifen 10 mg tablet 10 mg PO .QOD 05/16/23 04/03/24 Unknown History tretinoin 0.05 % topical gel 1 appl topical BID 05/16/23 04/03/24 Unknown History triamcinolone acetonide 0.5 % 1 appl topical BID 04/03/24 04/03/24 Unknown History topical cream Assessment and Plan Assessment Anesthesia Assessment: Chart Reviewed Final Anesthetic Review Family History of Problems with Anesthesia: No History of Problems with Anesthesia: No Documented by User: Stephy Barrios MD 08/28/24 07:47 PMFSH Past Medical History Medical History (Updated 08/24/24 @ 08:54 by Mike Goodwin MD) Use of tamoxifen (Nolvadex) Asthmatic bronchitis Cholecystitis, acute with cholelithiasis Asthma Chest pain Asthma Neck pain Intercostal muscle pain Cough Otitis externa Colon cancer screening Overweight (BMI 25.0-29.9) Wound abscess Cellulitis of ear Menorrhagia Anemia Uterine fibroid Fatty liver Vitamin D deficiency GERD (gastroesophageal reflux disease) Restless leg syndrome Atypical hyperplasia of right breast Family History Family History Maternal Aunt Heart attack Lung cancer Uterine cancer Maternal Grandmother Lung cancer Maternal Uncle Lung cancer Surgical History Surgical History (Updated 08/28/24 @ 07:09 by Yareli Prince RN) Hx of cholecystectomy Hx of dilation and curettage History of endometrial ablation Status post laparoscopic sleeve gastrectomy History of appendectomy History of reduction mammoplasty Social History Social History Housing: House Alcohol intake: current Alcohol intake frequency: holidays/special occasions only Alcohol type: wine Comment: once Q 3 months 1-2 glasses Patient Tobacco Use Status: Never used Tobacco Tobacco use type: Cigarette Years Smoked: marijuana e-Cigarette/Vaping Use: Never Used Second Hand Smoke Exposure: No Use of substances other than those prescribed or required for medical reasons: Yes Substance Use Type: Marijuana Are you DNR?: No Advance Directives: No Advance Directives Information Provided: Yes Patient : No : No Poor oral hygiene: No service: No Current occupational status: employed Cognitive needs: No Hearing needs: No Vision needs: Yes (glasses) Meds Allergies Allergy/AdvReac Type Severity Reaction Status Date / Time beclomethasone [From QVAR] Allergy Severe ANAPHYLAXIS,CHEST Verified 08/24/24 08:52 TIGHTNESS cyclobenzaprine AdvReac Intermediate restless Verified 08/24/24 08:52 leg Home Medications ?Medication ?Instructions ?Recorded ?Confirmed ?Last Taken ?Type AGELESS LX 3 cap PO .QD 05/16/23 04/03/24 Unknown History BETTER Lungs PO .QD 2 a day 05/16/23 04/03/24 Unknown History multivitamin 1 tab PO DAILY 05/16/23 04/03/24 Unknown History tamoxifen 10 mg tablet 10 mg PO .QOD 05/16/23 04/03/24 Unknown History tretinoin 0.05 % topical gel 1 appl topical BID 05/16/23 04/03/24 Unknown History triamcinolone acetonide 0.5 % 1 appl topical BID 04/03/24 04/03/24 Unknown History topical cream Exam Airway Mallampati Class: II TM Dist: >3cm Neck ROM: Full Assessment and Plan Assessment Anesthesia Assessment: Anesthesia Plan Discussed Final Anesthetic Review NPO: Yes ASA Class: II Final Preanesthetic Review: No Changes in Pt Med Stat, Meds/Allgs Chart Reviewed, Consent Obtained/Reviewed and Anes Risks/Benef Reviewed Patient Risk: Low Procedure Risk: Low Anesthetic Plan Anesthetic Plan: GA Disposition: Standard PACU
[2024-08-28] VITALS (7 sets, daily range): BP systolic 122–141; BP diastolic 70–89; PULSE 61–84; RESP 12–17; TEMP 36.4–36.7; O2SAT 96–100; BMI 27.7
[2024-08-28 07:16] LABS: UPreg QC Valid YES; Urine Pregnancy NEGATIVE (NEGATIVE)
[2024-08-28] MEDS: Lactated Ringers 1,000 ML 100 ML IVCONT (07:26)
--- NOTE | 2024-08-28 07:29 | MHC.SHP ---
Pre-Procedural Eval Section A - 24 Hr Update-Section A only Date of Service: 08/28/24 The patient is an INPATIENT: No Changes since office visit: No Cold of Flu in the past 2 weeks, No New Medical Problems, No Changes in Medication and No Patient answered all questions The patient has been examined within 24 hours of the surgical procedure. The History & Physical has been completed within 30 days and I have reviewed it.: Yes Section B - Complete if H&P > 30 days Chief Complaint: Postmenopausal bleeding Allergies: Allergies Allergy/AdvReac Type Severity Reaction Status Date / Time beclomethasone [From QVAR] Allergy Severe ANAPHYLAXIS,CHEST Verified 08/24/24 08:52 TIGHTNESS cyclobenzaprine AdvReac Intermediate restless Verified 08/24/24 08:52 leg Plan Diagnosis/Plan: Unchanged I have reviewed the history and physical and performed a pertinent physical examination on my patient. No changes have occurred unless specified. Time Spent With Patient Time: Total time managing care of this patient today ____ minutes.
--- NOTE | 2024-08-28 08:50 | PM.OP ---
Brief Operative Note Date of Service: 08/28/24 Pre-op diagnosis: Postmenopausal bleeding Post-op diagnosis: same (Intrauterine adhesions) Procedure: Hysteroscopy D&C Surgeon: Mike Goodwin MD Anesthesia: GLMA Was an Soft Work Wrapper Examiner used for this Procedure?: No Estimated blood loss (mL): 0 Pathology: other (Endometrial Scrapping.) Condition: stable Disposition: PACU
--- NOTE | 2024-08-28 08:51 | W.PM.OPN ---
Operative Note Operative Note Date of Service: 08/28/24 Narrative: Preop Diagnosis: Post Menopausal bleeding Operation: Diagnostic Hysteroscopy, Dilatation & Curettage Post Op Diagnosis: Intrauterine adhesions QBL: Minimal Anesthesia: GLMA Surgeon: Mike Goodwin MD Buckle Strap Drum Operator: None Complication: None Pathology: Endometrial Scrapings Procedure: The patient was put in the dorsal lithotomy position, scrubbed, and draped in the usual manner. A sterile speculum was inserted in the patient's vagina. The anterior lip of the cervix was grasped with a single tooth tenaculum. The cervix was dilated up to 5 mm, then the scope was inserted in the patient's uterus. Inspection revealed intrauterine adhesions from previous endometrial ablation. The Myosure Reach device was used; the scope was removed from the endometrial cavity , sharp curettings was carried on with minimal to moderate amount of tissues retrieved. At the end of the procedure, all instruments were taken out of the patient uterine and vaginal cavity. The single tooth tenaculum was removed and homeostasis was assured using pressure,. The patient tolerated the procedure well and was transferred to the PACU in a stable condition.
[2024-08-28] MEDS: Acetaminophen 325 MG TABLET 975 MG PO (09:06)
== END 2024-08-28 09:47 | disposition home or self-care (01) ==
PROVIDERS: PCP Internal Medicine; Visit Provider Obstetrics & Gynecology
PROC: 0UDB8ZZ Extraction of Endometrium, Via Natural or Artificial Opening Endoscopic (ICD-10-PCS; CPT 58558; principal; 2024-08-28 08:40)
DX: N95.0 Postmenopausal bleeding (principal); Z79.810 Long term (current) use of selective estrogen receptor modulators (SERMs); N85.6 Intrauterine synechiae; N60.91 Unspecified benign mammary dysplasia of right breast; J45.901 Unspecified asthma with (acute) exacerbation; K76.0 Fatty (change of) liver, not elsewhere classified; K21.9 Gastro-esophageal reflux disease without esophagitis; D64.9 Anemia, unspecified; R05.9 Cough, unspecified; R07.9 Chest pain, unspecified; M79.18 Myalgia, other site; E55.9 Vitamin D deficiency, unspecified; Z88.8 Allergy status to other drugs, medicaments and biological substances; Z90.49 Acquired absence of other specified parts of digestive tract; Z98.84 Bariatric surgery status; Z98.890 Other specified postprocedural states
CPT/HCPCS: 58558; 81025; 88305; J1100; J1885; J2250; J2405; J2704; J3010

== ENCOUNTER → 2024-08-28 06:57 | Outpatient (BNV) | payer OTHER, SELFPAY | PROVIDERS: PCP Internal Medicine; Visit Provider Obstetrics & Gynecology | DX: N95.0 Postmenopausal bleeding (principal) | CPT/HCPCS: 58558 ==

== ENCOUNTER 2024-09-10 09:11 | Outpatient (AMB) | payer OTHER, SELFPAY ==
--- NOTE | 2024-09-10 09:14 | MHC.OFFVIS ---
Intake Visit Reasons: post op Allergies beclomethasone [From QVAR] Allergy (Severe, Verified 08/24/24 08:52) ANAPHYLAXIS,CHEST TIGHTNESS cyclobenzaprine Adverse Reaction (Intermediate, Verified 08/24/24 08:52) restless leg HPI Comments Details: The patient scheduled a telehealth visit post hysteroscopy D&C no complaints minimal vaginal bleeding no feverishness chills or abdominal pain. The pathology showed the following: Superficial strips and fragments of inactive endometrium; abundant blood; no atypia or hyperplasia identified [facility] Medical History Use of tamoxifen (Nolvadex) Asthmatic bronchitis Cholecystitis, acute with cholelithiasis Asthma Chest pain Asthma Neck pain Intercostal muscle pain Cough Otitis externa Colon cancer screening Overweight (BMI 25.0-29.9) Wound abscess Cellulitis of ear Menorrhagia Anemia Uterine fibroid Fatty liver Vitamin D deficiency GERD (gastroesophageal reflux disease) Restless leg syndrome Atypical hyperplasia of right breast Surgical History Hx of cholecystectomy Hx of dilation and curettage History of endometrial ablation Status post laparoscopic sleeve gastrectomy History of appendectomy History of reduction mammoplasty Family History Maternal Aunt Heart attack Lung cancer Uterine cancer Maternal Grandmother Lung cancer Maternal Uncle Lung cancer Social History Housing: House Alcohol intake: current Alcohol intake frequency: holidays/special occasions only Alcohol type: wine Comment: once Q 3 months 1-2 glasses Patient Tobacco Use Status: Never used Tobacco Tobacco use type: Cigarette Years Smoked: marijuana e-Cigarette/Vaping Use: Never Used Second Hand Smoke Exposure: No Substance Use Type: Marijuana service: No Current occupational status: employed Cognitive needs: No Hearing needs: No Vision needs: Yes (glasses) Review of Systems Const All systems reviewed & are unremarkable except as noted in HPI and below Reports as per HPI and Reports no additional complaints GI Reports no additional complaints Reports no additional complaints Telehealth Telehealth Telehealth Platform: Telephone Location of provider rendering services: practice address Location of patient: address on file Patient Identification confirmed using: Name, : Yes Telehealth method: video Patient verbally consented to treatment: Yes Patient verbally consented to billing insurance company: Yes Patient informed of any privacy concerns related to visit: Yes Minutes spent on Phone/Video with Pt.: 2 Assessment & Plan Assessment & Plan (1) Postmenopausal bleeding: Comment: On tamoxifen History of endometrial ablation Code(s): N95.0 - Postmenopausal bleeding Category: Medical Plan: Discussed with the patient the results of the intraoperative finding, intrauterine adhesions from previous endometrial ablation, and the results of the pathology. Discussed with the patient the sensitivity, specificity, positive and negative predictive value, of endometrial biopsy in detecting endometrial pathology including but not limited to endometrial hyperplasia, cancer and other pathology; instructed the patient to call in case vaginal bleeding recurs, the next step will be to proceed with further endometrial sampling evaluation to rule out endometrial pathology. All questions answered and the patient verbalized understanding and agreed with the plan. I spent a total of 20 minutes reviewing the chart, talking to the patient via video and documenting in the medical record. Coding Level of Care Code Tele Est Pt Level 3 (54445) Diagnoses Postmenopausal bleeding N95.0
--- OUTSIDE RECORDS SUMMARY | 2024-09-10 09:42 | XMS_ITS | Clinical Summary ---
Author Organization [facility] Address [address] [place] [address] Care Team Providers Care Voucher Clerk Name Role Phone Unavailable Primary Care Provider [...]
== END 2024-09-10 09:52 | disposition home or self-care (01) ==
LOC: HO.HWS 09:11
PROVIDERS: PCP Internal Medicine; Visit Provider Obstetrics & Gynecology
DX: N95.0 Postmenopausal bleeding (principal)
CPT/HCPCS: 99213

== ENCOUNTER 2024-10-13 10:28 | Outpatient (AMB) | payer OTHER, SELFPAY ==
--- NOTE | 2024-10-13 10:29 | A.OFFPC_ITS ---
Intake Visit Reasons: insomnia Industrial Sales Engineer Required: No Accompanied by: Self / Same As Patient Allergies beclomethasone [From QVAR] Allergy (Severe, Verified 10/13/24 10:29) ANAPHYLAXIS,CHEST TIGHTNESS cyclobenzaprine Adverse Reaction (Intermediate, Verified 10/13/24 10:29) restless leg Tobacco use date assessed: 10/13/24 Dental Screening Dental Screen Date: 10/13/24 Did you have a dental visit in the last 12 months?: Yes Did you have a dental problem in the last 6 months where you did not have access to dental care?: No Was dental information given to patient?: Patient has dentist [facility] Medical History Use of tamoxifen (Nolvadex) Asthmatic bronchitis Cholecystitis, acute with cholelithiasis Asthma Chest pain Asthma Neck pain Intercostal muscle pain Cough Otitis externa Colon cancer screening Overweight (BMI 25.0-29.9) Wound abscess Cellulitis of ear Menorrhagia Anemia Uterine fibroid Fatty liver Vitamin D deficiency GERD (gastroesophageal reflux disease) Restless leg syndrome Atypical hyperplasia of right breast Surgical History Hx of cholecystectomy Hx of dilation and curettage History of endometrial ablation Status post laparoscopic sleeve gastrectomy History of appendectomy History of reduction mammoplasty Family History Maternal Aunt Heart attack Lung cancer Uterine cancer Maternal Grandmother Lung cancer Maternal Uncle Lung cancer Social History Housing: House Alcohol intake: current Alcohol intake frequency: holidays/special occasions only Alcohol type: wine Comment: once Q 3 months 1-2 glasses Patient Tobacco Use Status: Never used Tobacco Tobacco use type: Cigarette Years Smoked: marijuana e-Cigarette/Vaping Use: Never Used Second Hand Smoke Exposure: No Substance Use Type: Marijuana service: No Current occupational status: employed Cognitive needs: No Hearing needs: No Vision needs: Yes (glasses) Questionnaire PHQ-9 Over the last 2 weeks, how often have you been bothered by any of the following problems? 1. Little interest or pleasure in doing things: not at all 2. Feeling down, depressed, or hopeless: not at all 3. Trouble falling or staying asleep, or sleeping too much: not at all 4. Feeling tired or having little energy: not at all 5. Poor appetite or overeating: not at all 6. Feeling bad about yourself - or that you are a failure or have let yourself or your family down: not at all 7. Trouble concentrating on things, such as reading the newspaper or watching television: not at all 8. Moving or speaking so slowly that other people could have noticed. Or the opposite - being so fidgety or restless that you have been moving around a lot more than usual: not at all 9. Thoughts that you would be better off or of hurting yourself in some way: not at all Total score: 0 Depression Screening Interpretation: Negative Depression Screening Done: Yes Source: Developed by Drs. Vinay Winkler, Kacey Faith, Berhane Bah and colleagues, with an educational radha from [employer]. Thrive Questionnaire Date Thrive assessed: 10/13/24 I am a: Patient What is your living situation today?: I have a steady place to live Within the past 12 months, did the food you bought not last and you didn't have the money to get more?: Never true Within the past 12 months, did you worry whether your food would run out before you got money to buy more?: Never true Do you have trouble paying for medicines?: No Do you have trouble getting transportation to medical appointments?: No Do you have trouble paying your heating and electricity bill?: No Do you have trouble taking care of your child, family member or friend?: No Do you have trouble with day-to-day activities such as bathing, preparing meals, shopping, managing finances, etc.?: No Are you currently unemployed and looking for a job?: No Are you interested in more education?: No Please select the resources that you would like help with: None Currently or been in a relationship where the following occur: No concerns reported THRIVE Score: 0 AUDIT C Alcohol Use Questionnaire (AUDIT-C) 1. How often do you have a drink containing alcohol?: Monthly or less 2. How many drinks containing alcohol do you have on a typical day when you are drinking?: 1 or 2 3. How often do you have six or more drinks on one occasion?: Never Total Score: 1 LISA-7 AMB Questionnaire LISA-7 Date LISA - 7 assessed: 10/13/24 Feeling nervous, anxious, or on edge: 0 = Not at all Not being able to stop or control worryin = Not at all Worrying too much about different things: 0 = Not at all Trouble relaxin = Not at all Being so restless that it is hard to sit still: 0 = Not at all Becoming easily annoyed or irritable: 0 = Not at all Feeling afraid as if something awful might happen: 0 = Not at all Total LISA-7 score (0-4 normal; 5-9 mild; 10-14 moderate; 15-21 severe): 0 Source: Developed by Drs. Vinay Winkler, Kacey Faith, Berhane Bah and colleagues, with an educational radha from [employer]. Physical exam (Primary Care) Tobacco/Smoking Status: Tobacco use Status Tobacco use date assessed 10/13/24 10/13/24 10:31 Patient Tobacco Use Status Never used Tobacco 10/13/24 10:31 Tobacco use type Cigarette 10/13/24 10:31 e-Cigarette/Vaping Use Never Used 10/13/24 10:31 PHQ-9: PHQ-9 Score PHQ-9: Total score 0 10/13/24 10:31 Depression Screening Interpretation: Negative Thrive Assessment: Date of Thrive Assessment Date Thrive assessed 10/13/24 10/13/24 10:31 Currently or been in a relationship where the following occur: No concerns reported Telehealth Telehealth Telehealth Platform: Telephone Location of provider rendering services: practice address Location of patient: other (work) Patient Identification confirmed using: Name, : Yes Telehealth method: video (Periscape) Patient verbally consented to treatment: Yes Patient verbally consented to billing insurance company: Yes Patient informed of any privacy concerns related to visit: Yes Minutes spent on Phone/Video with Pt.: 25 Coding Level of Care Code Est Pt Level 4 (32137) Diagnoses Hypercholesterolemia E78.00 Atypical lobular hyperplasia (ALH) of breast N60.99 Tension headache G44.209 Assessment & Plan Assessment & Plan (1) Hypercholesterolemia: Code(s): E78.00 - Pure hypercholesterolemia, unspecified Category: Medical Plan: Avoid fried foods, chicken skin, eggs, butter margarine, pastries and meat. Be it pork or beef they have a lot of cholesterol patient is advised to get blood work done in the next month or so (2) Atypical lobular hyperplasia (ALH) of breast: Comment: Mammogram December 2022/May 2024 Code(s): N60.99 - Unspecified benign mammary dysplasia of unspecified breast Category: Medical Plan: Up-to-date with mammogram May 2024 (3) Tension headache: Code(s): G44.209 - Tension-type headache, unspecified, not intractable Category: Medical Plan: Patient is advised to eat healthy, keep well hydrated, keep active and have adequate sleep. Plan History of Present Illness The patient is a 53-year-old female presenting with a follow-up visit. She has a history of laparoscopic sleeve gastrectomy performed in August 2017, which was followed by the development of hepatic steatosis and gastroesophageal reflux disease (GERD). The patient also has a history of asthma and hypertriglyceridemia. 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 An endometrial curettage was performed, showing inactive endometrium with no atypia. The patient reports experiencing tension-type headaches for the past three weeks, characterized by pain extending from the back of the neck to the top of the head. She denies nausea and vomiting but reports occasional blurry vision. Additionally, she reports joint pain, which has been persistent for some time. The patient maintains hydration and has a schedule for blood work, with the last complete blood work done in October. Review of Systems - Neurological: Reports tension-type headache for three weeks. Denies nausea or vomiting. - Ophthalmologic: Reports occasional blurry vision. - Musculoskeletal: Reports persistent joint pain. Plan The patient is advised to continue follow-up with gynecology for postmenopausal bleeding, with previous endometrial curettage showing inactive endometrium and no atypia. For the tension-type headache, a medication has been prescribed to be taken at night to assess its effectiveness, with the patient instructed to monitor for any improvement. The patient is also advised to complete blood work to monitor cholesterol levels and other parameters, given the history of hypertriglyceridemia and elevated cholesterol. Patient was informed and verbally consented to the use of an ambient scribe for clinic note documentation during this visit. Discussion Notes I discussed with the patient the importance of continuing follow-up with gynecology for postmenopausal bleeding, emphasizing the benign findings from the recent endometrial curettage. We also talked about managing her tension-type headaches with a new medication to be taken at night, and I advised her to observe any changes in symptoms. Additionally, I recommended completing blood work to evaluate her cholesterol levels and other health parameters, considering her history of hypertriglyceridemia. Patient Instructions - Continue follow-up with gynecology for postmenopausal bleeding. - Take the prescribed medication for headaches at night and monitor for improvement. - Complete blood work to check cholesterol and other health parameters. Medications: New amitriptyline 10 mg PO BEDTIME 30 tabs 2RF G44.788 - Tension-type headache, unspecified, not intractable
--- OUTSIDE RECORDS SUMMARY | 2024-10-13 11:59 | XMS_ITS | Clinical Summary ---
Author Organization [facility] Address [address] [place] [address] Care Team Providers Care Nanny Babysitter Name Role Phone Unavailable Primary Care Provider [...] Vaccine (1 of 2) 10/27/2021 Influenza Vaccine (Season Ended) 2024 Pneumococcal Vaccine Aged Out No long er eligible based on patient's age to complete this topic RSV Ped < 20 months Aged Out No longe r eligible based on patient's age to complete this topic
== END 2024-10-13 13:19 | disposition home or self-care (01) ==
LOC: HO.HMCH 10:28
PROVIDERS: PCP Internal Medicine; Visit Provider Internal Medicine
DX: E78.00 Pure hypercholesterolemia, unspecified (principal); N60.99 Unspecified benign mammary dysplasia of unspecified breast; G44.209 Tension-type headache, unspecified, not intractable

== ENCOUNTER → 2024-10-13 10:28 | Outpatient (BNVA) | payer OTHER, SELFPAY | PROVIDERS: PCP Internal Medicine; Visit Provider Internal Medicine ==

== ENCOUNTER 2024-10-22 08:57 | Outpatient (REF) | payer OTHER, SELFPAY ==
[2024-10-22 09:15] LABS: MANUAL DIFF FLAG NO
[2024-10-22 09:43] LABS: Basophils Absolute Auto 0.1 X10*3/uL (0.0-0.2); Basophils Percent Auto 1.1 % (0-2); Eosinophils Absolute Auto 0.3 X10*3/uL (0.0-0.4); Eosinophils Percent Auto 4.2 % (0-4); Imm Gran Abs Auto 0.02 X10*3/uL (0.00-0.03); Imm Gran Pct Auto 0.3 % (0.0-0.4); Lymphocytes Absolute Auto 2.8 X10*3/uL (1.2-4.9); Lymphocytes Percent Auto 42.7 % (20-40); Mean Corpuscular HGB Conc 33.3 g/dl (31.0-35.0); Mean Corpuscular Hemoglobin 30.2 pg (27.0-33.0); Mean Corpuscular Volume 90.7 fL (80.0-98.0); Mean Platelet Volume 9.7 fL (9.4-12.3); Monocytes Absolute Auto 0.4 X10*3/uL (0.1-1.2); Monocytes Percent Auto 5.3 % (2-11); Neutrophils Absolute Auto 3.1 x10*3/uL (2.0-8.3); Neutrophils Percent Auto 46.4 % (45-73); Platelet Count 351 X10*3/uL (160-400); Red Cell Distribution Width 12.4 % (11.0-16.0); White Blood Count 6.6 X10*3/uL (4.8-10.8)
[2024-10-22 10:15] LABS: Estimated Average Glucose 100 mg/dL; Hemoglobin A1c % 5.1 % (<6.0)
[2024-10-22 10:17] LABS: Alanine Aminotransferase 20 U/L (0-31); Albumin Level 4.3 g/dL (3.5-5.0); Alkaline Phosphatase 57 U/L (39-117); Anion Gap 10 (12-20); Aspartate Amino Transferase 25 U/L (5-31); Bilirubin Total 0.4 mg/dL (0.0-1.0); Blood Urea Nitrogen 10 mg/dL (9-16); Calcium 8.9 mg/dL (8.4-10.2); Carbon Dioxide 29 mmol/L (22-29); Chloride 107 mmol/L (96-108); Cholesterol 210 mg/dL (<200); Estimated Glomerular Filt Rate > 60; Glucose Random 94 mg/dL (60-115); HDL Cholesterol 55 mg/dL (>40); LDL Cholesterol Calculated 119 mg/dL (<100); Potassium 4.1 mmol/L (3.3-5.1); Sodium 142 mmol/L (135-145); Total Protein 7.1 g/dL (6.5-8.0); Triglycerides 182 mg/dL (<150)
[2024-10-22 10:31] LABS: Free T4 (Free Thyroxine) 0.73 ng/dL (0.71-1.85); Thyroid Stimulating Hormone 1.76 uIU/mL (0.32-4.0); Vitamin D 25-OH Total 31.9 ng/mL (>30)
[2024-10-22 10:43] LABS: Folate 7.2 ng/mL (> or = 4.0); Vitamin B12 652 pg/mL (200-900)
== END 2024-10-22 08:58 | disposition home or self-care (01) ==
LOC: HO.LAB 08:57
PROVIDERS: PCP Internal Medicine; Visit Provider Internal Medicine
DX: E78.00 Pure hypercholesterolemia, unspecified (principal); E78.1 Pure hyperglyceridemia; Z13.1 Encounter for screening for diabetes mellitus
CPT/HCPCS: 36415; 80053; 80061; 82306; 82607; 82746; 83036; 84439; 84443; 85025